=== PATIENT | female | born 1955 | race Caucasian/White ===

== ENCOUNTER 2017-05-14 15:10 | Emergency (ER) | payer MEDICARE, MEDICAID ==
--- NOTE | 2017-05-14 15:32 | ER Document Report ---
ED Dizziness/Weakness - General Chief Complaint: High Blood Pressure Stated Complaint: DIZZINESS Time Seen by Provider: 05/14/17 15:31 Mode of Arrival: Medic Information source: Patient Notes: 61 yo female with hx HTN, fibromyalgia, severe depression (vagal nerve stimulator for depression- years) (tx by [facility]) sent by PSYCH Beth MENDIETAP (routine appt had some dizziness prior to appt- gets it when her BP goes up) at 1200, had 3 elevated readings, was given prescription for new rx and to stop the rx dr jacinto has given her in past, also cut down clonazapam went home after filling them at [facility]. Watched TV felt tightening in the throat (less now), pounding frontal HENRY 4/5, called her PCP and they told her to come per Dr Jacinto. She called EMS did not have a ride here. After she got to the ER her BP was better. Feels OK. While on ambulance, started having some midline stomach pain, IV put in, EKG. At this time she has pain in left elbow (hx arthritis in back and neck) (tender left lateral olecranon area tendon) HENRY now 1.5/5. TRAVEL OUTSIDE OF THE [place] IN LAST 30 DAYS: No - Related Data Allergies/Adverse Reactions: No Known Allergies Allergy (Verified 05/01/15 09:12) Past Medical History - General Information source: Patient - Social History Smoking Status: Current Every Day Smoker Frequency of alcohol use: None Drug Abuse: None Lives with: Family Family History: Reviewed & Not Pertinent - Past Medical History Cardiac Medical History: Reports: Hx Hypercholesterolemia, Hx Hypertension - MEDICATED Pulmonary Medical History: Reports: Hx COPD Endocrine Medical History: Reports: Hx Hyperthyroidism GI Medical History: Reports: Hx Gastroesophageal Reflux Disease Musculoskeltal Medical History: Reports Hx Arthritis Psychiatric Medical History: Reports: Hx Depression Past Surgical History: Reports: Hx Appendectomy, Hx Cholecystectomy, Hx Gynecologic Surgery - oopherectomy, Hx Orthopedic Surgery - back surgery, Hx Tonsillectomy - Immunizations Immunizations up to date: Yes Hx Diphtheria, Pertussis, Tetanus Vaccination: Yes - Tetanus only Review of Systems - Review of Systems Constitutional: See HPI EENT: See HPI Cardiovascular: No symptoms reported Respiratory: No symptoms reported Gastrointestinal: No symptoms reported Genitourinary: No symptoms reported Female Genitourinary: No symptoms reported Musculoskeletal: See HPI Skin: No symptoms reported Hematologic/Lymphatic: No symptoms reported Neurological/Psychological: See HPI Physical Exam - Vital signs Vitals: Temp Pulse BP Pulse Ox 98.4 F 66 177/99 H 100 05/14/17 15:18 05/14/17 15:18 05/14/17 15:18 05/14/17 15:18 Interpretation: Normal - General General appearance: Appears well, Alert In distress: None - HEENT Head: Normocephalic, Atraumatic Eyes: Normal Conjunctiva: Normal Pupils: PERRL Pharynx: Normal Neck: Supple. No: Lymphadenopathy, Thyromegally - Respiratory Respiratory status: No respiratory distress Chest status: Nontender Breath sounds: Normal Chest palpation: Normal - Cardiovascular Rhythm: Regular Heart sounds: Normal auscultation Murmur: No - Abdominal Inspection: Normal Distension: No distension Bowel sounds: Normal Tenderness: Nontender. No: Tender Organomegaly: No organomegaly - Back Back: Normal, Nontender - Extremities General upper extremity: Normal inspection, Nontender, Normal color, Normal ROM , Normal temperature General lower extremity: Normal inspection, Nontender, Normal color, Normal ROM , Normal temperature, Normal weight bearing. No: Ntiza's sign Elbow: Tender - lateral proximal left forearm at radial head over muscle/tendon - Neurological Neuro grossly intact: Yes Cognition: Normal Orientation: AAOx4 [place] Coma Scale Eye Opening: Spontaneous [place] Coma Scale Verbal: Oriented [place] Coma Scale Motor: Obeys Commands [place] Coma Scale Total: 15 Speech: Normal Motor strength normal: LUE, RUE, LLE, RLE Sensory: Normal Notes: gait stable, alternating hand movements and finger to nose touch negative. - Psychological Associated symptoms: Normal affect, Normal mood - Skin Skin Temperature: Warm Skin Moisture: Dry Skin Color: Normal Course - Re-evaluation Re-evalutation: 05/14/17 19:11 Workup is negative, consult Dr. Kulkarni she can be discharged with no change to medication. bp 186/96 05/14/17 19:15 - Vital Signs Vital signs: Temp Pulse Resp BP Pulse Ox 98.4 F 66 177/99 H 100 05/14/17 15:18 05/14/17 15:18 05/14/17 15:18 05/14/17 15:18 - Laboratory Result Diagrams: 05/14/17 16:35 05/14/17 16:35 Laboratory results interpreted by me: 05/14/17 05/14/17 16:35 16:35 Hgb 11.5 L Hct 33.9 L Potassium 3.5 L Carbon Dioxide 32 H Glucose 74 L Discharge - Discharge Clinical Impression: dizziness, Left elbow tendonitis Hypertension Qualifiers: Hypertension type: essential hypertension Qualified Code(s): I10 - Essential ( primary) hypertension Condition: Good Disposition: HOME, SELF-CARE Instructions: Angiotensin Converting Enzyme Inhibitor Medication ([facility]), Dizziness ([facility]), High Blood Pressure ([facility]), Hydrochlorothiazide ([facility]) Additional Instructions: see dr. jacinto for follow up warm compress to your elbow start your new blood pressure medication to er if worse
[2017-05-14 16:58] LABS: ABSOLUTE BASOPHILS # (AUTO) 0.1 10^3/uL (0.0-0.2); ABSOLUTE LYMPHOCYTES (AUTO) 2.4 10^3/uL (0.5-4.7); ABSOLUTE MONOCYTES (AUTO) 0.3 10^3/uL (0.1-1.4); ABSOLUTE NEUT (AUTO) 4.3 10^3/uL (1.7-8.2); BASOPHILS % (AUTO) 0.9 % (0-2); EOSINOPHILS % (AUTO) 0.4 % (0-6); HEMATOCRIT 33.9 % (36.0-47.0); HEMOGLOBIN 11.5 g/dL (12.0-15.5); HGB HCT DIFFERENCE 0.6; LYMPHOCYTES % (AUTO) 33.5 % (13-45); MEAN CORPUSCULAR HEMOGLOBIN 30.2 pg (27.0-33.4); MEAN CORPUSCULAR HGB CONC 33.9 g/dL (32.0-36.0); MEAN CORPUSCULAR VOLUME 89 fl (80-97); MONOCYTES % (AUTO) 4.7 % (3-13); RED BLOOD COUNT 3.81 10^6/uL (3.72-5.28); SEGMENTED NEUTROPHILS % (AUTO) 60.5 % (42-78); WHITE BLOOD COUNT 7.1 10^3/uL (4.0-10.5)
[2017-05-14 17:14] LABS: ALANINE AMINOTRANSFERASE 26 U/L (9-52); ALBUMIN 4.1 g/dL (3.5-5.0); ALKALINE PHOSPHATASE 65 U/L (38-126); ANION GAP 7 (5-19); ASPARTATE AMINO TRANSFERASE 24 U/L (14-36); BILIRUBIN,DIRECT 0.2 mg/dL (0.0-0.4); BILIRUBIN,TOTAL 0.3 mg/dL (0.2-1.3); BLOOD UREA NITROGEN 10 mg/dL (7-20); CALCIUM 9.5 mg/dL (8.4-10.2); CARBON DIOXIDE 32 mmol/L (22-30); CHLORIDE 99 mmol/L (98-107); CREATINE KINASE 47 U/L (30-135); CREATININE RESULT 0.64 mg/dL (0.52-1.25); GLUCOSE 74 mg/dL (75-110); POTASSIUM 3.5 mmol/L (3.6-5.0); SODIUM 137.8 mmol/L (137-145); TOTAL PROTEIN 6.3 g/dL (6.3-8.2)
[2017-05-14 17:26] LABS: CREATINE KINASE MB 0.94 ng/mL (<4.55)
[2017-05-14 17:28] LABS: TROPONIN I < 0.012 ng/mL
--- NOTE | 2017-05-14 17:32 | RADIOLOGY REPORT (SQ) ---
EXAM DESCRIPTION: CT HEAD WITHOUT COMPLETED DATE/TIME: 05/14/2017 5:13 pm REASON FOR STUDY: headache dizzy elevated bp COMPARISON: 07/06/2014 TECHNIQUE: Axial images acquired through the brain without intravenous contrast. Images reviewed wi th bone, brain and subdural windows. Images stored on PACS. All CT scanners at this facility use dose modulation, iterative reconstruction, and/or weight based d osing when appropriate to reduce radiation dose to as low as reasonably achievable (ALARA). [facility]: Dose Right [facility]: CareDose [facility]: Dose Right [facility]: Teradose 4D [facility]: Smart [employer] RADIATION DOSE: CT Rad equipment meets quality standard of care and radiation dose reduction techniq ues were employed. CTDIvol: 64.6 mGy. DLP: 1163 mGy-cm. mGy. LIMITATIONS: None. FINDINGS: VENTRICLES: Normal. CEREBRUM: No masses. No hemorrhage. No midline shift. Areas of low density in the white matter mos t likely due to chronic micro-vascular ischemic change. No evidence for acute infarction. CEREBELLUM: No masses. No hemorrhage. No alteration of density. No evidence for acute infarction. EXTRAAXIAL SPACES: Mild age-related involutional change. No fluid collections. No masses. ORBITS AND GLOBE: No intra- or extraconal masses. Normal contour of globe without masses. CALVARIUM: No fracture. PARANASAL SINUSES: No fluid or mucosal thickening. SOFT TISSUES: No mass or hematoma. OTHER: No other significant finding. IMPRESSION: No acute intracranial findings. EVIDENCE OF ACUTE STROKE: NO. TECHNICAL DOCUMENTATION: JOB ID: [id number] [place]-72 Quality ID # [id number]: Final reports with documentation of one or more dose reduction techniques (e.g., Au tomated exposure control, adjustment of the mA and/or kV according to patient size, use of iterative reconstruction technique) 2010 [employer]- All Rights Reserved
--- NOTE | 2017-05-14 17:33 | RADIOLOGY REPORT (SQ) ---
EXAM DESCRIPTION: CHEST PA/LAT COMPLETED DATE/TIME: 05/14/2017 5:13 pm REASON FOR STUDY: sob COMPARISON: 02/25/2014 EXAM PARAMETERS: NUMBER OF VIEWS: two views TECHNIQUE: Digital Frontal and Lateral radiographic views of the chest acquired. RADIATION DOSE: NA LIMITATIONS: none FINDINGS: LUNGS AND PLEURA: No acute opacities, masses or pneumothorax. No pleural effusion. MEDIASTINUM AND HILAR STRUCTURES: Stable. HEART AND VASCULAR STRUCTURES: Heart normal size. No evidence for failure. BONES: No acute findings. HARDWARE: Nerve stimulator. OTHER: No other significant finding. IMPRESSION: No acute findings. TECHNICAL DOCUMENTATION: JOB ID: [id number] [place]-72 2010 [employer]- All Rights Reserved
--- NOTE | 2017-05-14 18:48 | EKG REPORT ---
SEVERITY:- ABNORMAL ECG - SINUS RHYTHM LEFT VENTRICULAR HYPERTROPHY : Confirmed by: Willie Carranza MD 14-May-2017 18:48:18
[2017-05-14 19:37] VITALS: BP 187/90
== END 2017-05-14 19:57 | disposition home or self-care (01) ==
LOC: ER 15:10
DX: I10 Essential (primary) hypertension (principal); R42 Dizziness and giddiness; M77.9 Enthesopathy, unspecified; M79.7 Fibromyalgia; F32.9 Major depressive disorder, single episode, unspecified; F17.200 Nicotine dependence, unspecified, uncomplicated; M25.522 Pain in left elbow
CPT/HCPCS: 36415; 70450; 71020; 80053; 82550; 82553; 84484; 85025; 93005; 93010; 99285

== ENCOUNTER 2020-01-04 13:59 | Inpatient (IN) | payer MEDICAID, MEDICARE ==
--- NOTE | 2020-01-04 15:03 | ER Document Report ---
ED Medical Screen (RME) - General Chief Complaint: Shortness Of Breath Stated Complaint: RIGHT SIDE BODY NUMBNESS Time Seen by Provider: 01/04/20 14:52 Primary Care Provider: INES VILLEDA DPM [Primary Care Provider] - Follow up as needed Mode of Arrival: Carried Information source: Patient Notes: 64-year-old female presented to ED for complaint of right-sided numbness to the arm and leg blood pressure 220/120 trouble breathing since yesterday. She states she is supposed to be on blood pressure medicine but has not taken any for about a year because she cannot afford it. She is alert and oriented she does have a headache does have the numbness I have ordered CT blood work EKG chest x-ray. She states she also states she had pain on the inside of the left side of her throat but it is not a sore throat. I have greeted and performed a rapid initial assessment of this patient. A comprehensive ED assessment and evaluation of the patient, analysis of test results and completion of medical decision making process will be conducted by an additional ED providers. TRAVEL OUTSIDE OF THE [place] IN LAST 30 DAYS: No - Related Data Allergies/Adverse Reactions: No Known Allergies Allergy (Verified 01/04/20 15:01) Past Medical History - Social History Chew tobacco use (# tins/day): No Frequency of alcohol use: None - Past Medical History Cardiac Medical History: Reports: Hx Congestive Heart Failure, Hx Hypercholesterolemia, Hx Hypertension - MEDICATED Denies: Hx Coronary Artery Disease, Hx Heart Attack Pulmonary Medical History: Reports: Hx COPD Denies: Hx Asthma, Hx Bronchitis, Hx Pneumonia, Hx Tuberculosis Neurological Medical History: Denies: Hx Cerebrovascular Accident, Hx Seizures Endocrine Medical History: Reports: Hx Hyperthyroidism Renal/ Medical History: Denies: Hx Peritoneal Dialysis GI Medical History: Reports: Hx Gastroesophageal Reflux Disease. Denies: Hx Hepatitis, Hx Hiatal Hernia, Hx Ulcer Musculoskeltal Medical History: Reports Hx Arthritis Psychiatric Medical History: Reports: Hx Depression Infectious Medical History: Denies: Hx Hepatitis Past Surgical History: Reports: Hx Appendectomy, Hx Cholecystectomy, Hx Gynecologic Surgery - oopherectomy, Hx Orthopedic Surgery - back surgery, Hx Tonsillectomy. Denies: Hx Hysterectomy, Hx Mastectomy, Hx Open Heart Surgery, Hx Pacemaker - Immunizations Immunizations up to date: Yes Hx Diphtheria, Pertussis, Tetanus Vaccination: Yes - Tetanus only Physical Exam - Vital signs Vitals: Temp Pulse Resp BP Pulse Ox 98.6 F 76 18 203/105 H 97 01/04/20 14:07 01/04/20 14:07 01/04/20 14:07 01/04/20 14:07 01/04/20 14:07 Course - Vital Signs Vital signs: Temp Pulse Resp BP Pulse Ox 98.6 F 76 18 203/105 H 97 01/04/20 14:07 01/04/20 14:07 01/04/20 14:07 01/04/20 14:07 01/04/20 14:07 Doctor's Discharge - Discharge Referrals: INES VILLEDA DPM [Primary Care Provider] - Follow up as needed
[2020-01-04] MEDS ORDERED: HYDRALAZINE HCL INJ/PF 20 MG/1 ML SDV IV ONE ×2 (15:26→17:58)
--- NOTE | 2020-01-04 15:42 | ER Document Report ---
ED General - General Chief Complaint: Shortness Of Breath Stated Complaint: RIGHT SIDE BODY NUMBNESS Time Seen by Provider: 01/04/20 14:52 Primary Care Provider: INES VILLEDA DPM [ACTIVE STAFF] - Follow up as needed Mode of Arrival: Carried Notes: HPI: 64-year-old female with past medical history as recorded including high blood pressure is been noncompliant with her blood pressure medications over a year secondary to financial constraints who presents stating that she started yesterday to have some numbness to her right arm and leg. She states it is been constant. She denies any weakness. States a very mild frontal headache without double or blurry vision. Patient states she has had some left anterior neck pain. She denies any trauma or swelling. She is very nonspecific about chest discomfort and just states "may be some pressure sometimes". No aggravating relieving factors. Some mild shortness of breath with ambulation. No radiation to the pain. No nausea, vomiting, fevers, diarrhea, calf pain or leg swelling. No recent trips or travel. ROS: See HPI All other review of systems reviewed and otherwise negative Reviewed vital signs and nursing note as charted by RN. PHYSICAL EXAM: CONSTITUTIONAL: Alert and oriented and responds appropriately to questions. Well-appearing; well-nourished HEAD: Normocephalic; atraumatic EYES: PERRL; full extraocular range of motion ENT: Normal nose; no rhinorrhea; moist mucous membranes; pharynx without lesions noted NECK: Supple without meningismus; non-tender to palpation of the posterior midline spine. Patient has some mild anterior neck tenderness with no swelling, erythema, or bruits on auscultation; no cervical lymphadenopathy, no masses CARD: Regular rate and rhythm; no murmurs; symmetric distal pulses RESP: Normal chest excursion without splinting or tachypnea; breath sounds clear and equal bilaterally; no wheezes, no rhonchi, no rales ABD/GI: Normal bowel sounds; non-distended; soft, non-tender; no palpable organomegaly or masses BACK: The back appears normal and is non-tender to palpation EXT: Normal ROM in all joints; non-tender to palpation; no edema SKIN: No acute lesions noted NEURO: CN 2-12 intact; 5/5 bilateral upper and lower extremity strength; patient has some mild decrease sensation to light touch to the right arm and right leg; no nystagmus with normal cerebellar exam PSYCH: The patient's mood and manner are appropriate. Grooming and personal hygiene are appropriate. TRAVEL OUTSIDE OF THE [place] IN LAST 30 DAYS: No - Related Data Allergies/Adverse Reactions: No Known Allergies Allergy (Verified 01/04/20 15:01) Past Medical History - General Information source: Patient - Social History Smoking Status: Current Every Day Smoker Chew tobacco use (# tins/day): No Frequency of alcohol use: None Family History: Reviewed & Not Pertinent - Past Medical History Cardiac Medical History: Reports: Hx Congestive Heart Failure, Hx Hypercholesterolemia, Hx Hypertension - MEDICATED Denies: Hx Coronary Artery Disease, Hx Heart Attack Pulmonary Medical History: Reports: Hx COPD Denies: Hx Asthma, Hx Bronchitis, Hx Pneumonia, Hx Tuberculosis Neurological Medical History: Denies: Hx Cerebrovascular Accident, Hx Seizures Endocrine Medical History: Reports: Hx Hyperthyroidism Renal/ Medical History: Denies: Hx Peritoneal Dialysis GI Medical History: Reports: Hx Gastroesophageal Reflux Disease. Denies: Hx Hepatitis, Hx Hiatal Hernia, Hx Ulcer Musculoskeletal Medical History: Reports Hx Arthritis Psychiatric Medical History: Reports: Hx Depression Infectious Medical History: Denies: Hx Hepatitis Past Surgical History: Reports: Hx Appendectomy, Hx Cholecystectomy, Hx Gynecologic Surgery - oopherectomy, Hx Orthopedic Surgery - back surgery, Hx Tonsillectomy. Denies: Hx Hysterectomy, Hx Mastectomy, Hx Open Heart Surgery, Hx Pacemaker - Immunizations Immunizations up to date: Yes Hx Diphtheria, Pertussis, Tetanus Vaccination: Yes - Tetanus only Physical Exam - Vital signs Vitals: Temp Pulse Resp BP Pulse Ox 98.6 F 76 18 203/105 H 97 01/04/20 14:07 01/04/20 14:07 01/04/20 14:07 01/04/20 14:07 01/04/20 14:07 Course - Re-evaluation Re-evalutation: Given the history and physical examination with the symptoms starting yesterday, with an NIH score of 1, BA and score negative, I do not believe that the patient is a TPA or extraction candidate at this time. Blood pressure was greater than 220/110 with a mild headache that is now resolved as well as some right arm and leg numbness. I will provide IV blood pressure control medications and obtain a cardiac panel and a CT scan of the head. Concern for the possibility of hypertensive emergency, stroke, intracranial lesion, or other acute pathology. I do believe currently with no chest discomfort, very vague symptoms, no radiation to the back, with excellent pulses to all 4 extremities, not tachycardic or hypoxic, the PE and dissection are unlikely. 01/04/20 16:22 No change in exam. EKG shows a heart of 62, normal sinus rhythm, left axis deviation. LVH is present. 01/04/20 17:55 Imaging as recorded. Old appearing strokes noted. Labs as recorded. We have provided 1 dose of IV medications for blood pressure. Patient's headache has improved. Numbness has improved. Blood pressure is relatively unchanged. We will provide another dose of hydralazine and admit the patient to the hospitalist service for further evaluation and treatment. - Vital Signs Vital signs: Temp Pulse Resp BP Pulse Ox 98.6 F 76 15 222/106 H 98 01/04/20 14:07 01/04/20 14:07 01/04/20 17:07 01/04/20 16:01 01/04/20 16:01 - Laboratory Result Diagrams: 01/04/20 15:40 01/04/20 15:40 Laboratory results interpreted by me: 01/04/20 01/04/20 15:40 15:40 Sodium 135.3 L NT-Pro-B Natriuret Pep 1240 H Critical Care Note - Critical Care Note Total time excluding time spent on procedures (mins): 40 Discharge - Discharge Clinical Impression: Hypertensive emergency, Elevated brain natriuretic peptide (BNP) level Condition: Fair Disposition: ADMITTED INPATIENT Admitting Provider: Chantal (Hospitalist) Unit Admitted: IMCU Referrals: INES VILLEDA DPM [ACTIVE STAFF] - Follow up as needed
[2020-01-04 15:57] LABS: ABSOLUTE EOSINOPHILS # (AUTO) 0.1 10^3/uL (0.0-0.6); ABSOLUTE LYMPHOCYTES (AUTO) 1.6 10^3/uL (0.5-4.7); ABSOLUTE MONOCYTES (AUTO) 0.4 10^3/uL (0.1-1.4); ABSOLUTE NEUT (AUTO) 2.7 10^3/uL (1.7-8.2); BASOPHILS % (AUTO) 0.5 % (0-2); EOSINOPHILS % (AUTO) 1.7 % (0-6); HEMATOCRIT 39.4 % (36.0-47.0); HEMOGLOBIN 13.3 g/dL (12.0-15.5); LYMPHOCYTES % (AUTO) 33.4 % (13-45); MEAN CORPUSCULAR HEMOGLOBIN 29.9 pg (27.0-33.4); MEAN CORPUSCULAR HGB CONC 33.6 g/dL (32.0-36.0); MEAN CORPUSCULAR VOLUME 89 fl (80-97); PLATELET COUNT 239 10^3/uL (150-450); RED BLOOD COUNT 4.44 10^6/uL (3.72-5.28); RED CELL DISTRIBUTION WIDTH 13.7 % (11.5-14.0); SEGMENTED NEUTROPHILS % (AUTO) 56.4 % (42-78); TOTAL CELLS COUNTED % (AUTO) 100 %; WHITE BLOOD COUNT 4.8 10^3/uL (4.0-10.5)
[2020-01-04 16:12] LABS: ALBUMIN 4.3 g/dL (3.5-5.0); ALKALINE PHOSPHATASE 75 U/L (38-126); ANION GAP 5 (5-19); ASPARTATE AMINO TRANSFERASE 22 U/L (14-36); BILIRUBIN,TOTAL 0.4 mg/dL (0.2-1.3); BLOOD UREA NITROGEN 10 mg/dL (7-20); CALCIUM 9.3 mg/dL (8.4-10.2); CARBON DIOXIDE 30 mmol/L (22-30); CHLORIDE 100 mmol/L (98-107); GLUCOSE 81 mg/dL (75-110); POTASSIUM 3.9 mmol/L (3.6-5.0); TOTAL PROTEIN 6.9 g/dL (6.3-8.2)
[2020-01-04 16:27] LABS: TROPONIN I 0.016 ng/mL
--- NOTE | 2020-01-04 16:30 | RADIOLOGY REPORT (SQ) ---
EXAM DESCRIPTION: CHEST SINGLE VIEW IMAGES COMPLETED DATE/TIME: 01/04/2020 4:21 pm REASON FOR STUDY: Short of breath COMPARISON: 05/14/2017 EXAM PARAMETERS: NUMBER OF VIEWS: One view. TECHNIQUE: Single frontal radiographic view of the chest acquired. RADIATION DOSE: NA LIMITATIONS: None. FINDINGS: LUNGS AND PLEURA: No opacities, masses or pneumothorax. No pleural effusion. MEDIASTINUM AND HILAR STRUCTURES: No masses. Contour normal. HEART AND VASCULAR STRUCTURES: Stable heart size. Normal vasculature. BONES: No acute findings. HARDWARE: Vagal stimulator. OTHER: No other significant finding. IMPRESSION: NO ACUTE RADIOGRAPHIC FINDING IN THE CHEST. TECHNICAL DOCUMENTATION: JOB ID: [id number] 2010 [employer]- All Rights Reserved Reading location - IP/workstation name: [email or web address]
--- NOTE | 2020-01-04 16:52 | EKG REPORT ---
SEVERITY:- ABNORMAL ECG - SINUS RHYTHM LEFT AXIS DEVIATION LVH WITH SECONDARY REPOLARIZATION ABNORMALITY : Confirmed by: Denzel Bowman MD 04-Jan-2020 16:52:12
--- NOTE | 2020-01-04 17:38 | RADIOLOGY REPORT (SQ) ---
EXAM DESCRIPTION: CTA NECK; CT HEAD WITHOUT; CTA HEAD IMAGES COMPLETED DATE/TIME: 01/04/2020 5:10 pm REASON FOR STUDY: 7; left neck pain. Right sided weakness; Right arm and leg numb since yesterday; RIGHT SIDED WEAKNESS COMPARISON: CT brain 12/18/2011, 07/06/2014, 05/14/2017 TECHNIQUE: Axial dynamic scanning technique with dynamic contrast enhancement through the extra-fire fighter crash fire and rescue nial carotid and vertebral arteries. Multiplanar reconstruction. 3-D MIPS and Volume-rendered imag es acquired at the workstation and saved to PACS. Images are reviewed in soft tissue, bone, lung w indows. Brain was imaged without contrast. Postcontrast brain imaging was performed with sagittal and cruz l reconstructions. Axial dynamic scanning technique with dynamic contrast enhancement through the i ntra-cranial carotid and vertebral arteries. Multiplanar reconstruction. 3-D MIPS and Volume-rende red images acquired at the workstation and saved to PACS. Images are reviewed in soft tissue, bone All CT scanners at this facility use dose modulation, iterative reconstruction, and/or weight based d osing when appropriate to reduce radiation dose to as low as reasonably achievable (ALARA). [facility]: Dose Right [facility]: CareDose [facility]: Dose Right [facility]: Teradose 4D [facility]: [employer] CONTRAST TYPE AND DOSE: contrast/concentration: Isovue 350.00 mmol/ml; Total Contrast Delivered: 70. 0 ml; Total Saline Delivered: 67.0 ml 75 mL of IV Omnipaque 350- low osmolar. RENAL FUNCTION: GFR > 60. LIMITATIONS: None. FINDINGS: EXTRACRANIAL CAROTID/VERTEBRAL CTA AORTIC ARCH: Normal three-vessel origin. Bilateral subclavian arteries are patent. No dissection. RIGHT CAROTIDS: Patent common, internal and external carotid arteries without suggestion of significa nt stenosis or irregular plaque. No dissection. RIGHT VERTEBRAL: Patent. No dissection. LEFT CAROTIDS: Patent common, internal and external carotid arteries without suggestion of significan t stenosis or irregular plaque. No dissection. LEFT VERTEBRAL: Patent. No dissection. OTHER: Left-sided pacemaker. Lung apices are clear. No neck masses or adenopathy. [place] CTA ANTERIOR CIRCULATION: No stenosis, vascular malformation, or aneurysm. POSTERIOR CIRCULATION: No stenosis, vascular malformation, or aneurysm BRAIN AND VENTRICLES: Pre contrasted CT imaging demonstrates no evidence of acute intracranial hemor rhage, mass effect, or midline shift. 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 Post contrasted brain imaging demonstrates no abnormal masses or enhancement. OTHER: Post bilateral cataract surgery OTHER: 3-D reconstructions confirm findings. IMPRESSION: NORMAL CTA OF THE EXTRA-CRANIAL CAROTID AND VERTEBRAL ARTERIES. MULTIPLE CHRONIC APPEARING DEEP WHITE MATTER, BASAL GANGLIA, AND THALAMIC INFARCTS. NO CT EVIDENCE OF ACUTE LARGE TERRITORY ISCHEMIC CHANGE, ACUTE INTRACRANIAL HEMORRHAGE, MASS EFFECT, OR MIDLINE SHIFT. COMMENT: Quality ID #[id number]: Measurements of distal internal carotid diameter were used as the denomina tor for stenosis measurement. TECHNICAL DOCUMENTATION: JOB ID: [id number] Quality ID # 436: Final reports with documentation of one or more dose reduction techniques (e.g., Au tomated exposure control, adjustment of the mA and/or kV according to patient size, use of iterative reconstruction technique) 2010 [employer]- All Rights Reserved Reading location - IP/workstation name: [email or web address]
--- NOTE | 2020-01-04 17:38 | RADIOLOGY REPORT (SQ) ---
EXAM DESCRIPTION: CTA NECK; CT HEAD WITHOUT; CTA HEAD IMAGES COMPLETED DATE/TIME: 01/04/2020 5:10 pm REASON FOR STUDY: 7; left neck pain. Right sided weakness; Right arm and leg numb since yesterday; RIGHT SIDED WEAKNESS COMPARISON: CT brain 12/18/2011, 07/06/2014, 05/14/2017 TECHNIQUE: Axial dynamic scanning technique with dynamic contrast enhancement through the extra-card scraper nial carotid and vertebral arteries. Multiplanar reconstruction. 3-D MIPS and Volume-rendered imag es acquired at the workstation and saved to PACS. Images are reviewed in soft tissue, bone, lung w indows. Brain was imaged without contrast. Postcontrast brain imaging was performed with sagittal and cruz l reconstructions. Axial dynamic scanning technique with dynamic contrast enhancement through the i ntra-cranial carotid and vertebral arteries. Multiplanar reconstruction. 3-D MIPS and Volume-rende red images acquired at the workstation and saved to PACS. Images are reviewed in soft tissue, bone All CT scanners at this facility use dose modulation, iterative reconstruction, and/or weight based d osing when appropriate to reduce radiation dose to as low as reasonably achievable (ALARA). [facility]: Dose Right [facility]: CareDose [facility]: Dose Right [facility]: Teradose 4D [facility]: Naviswiss CONTRAST TYPE AND DOSE: contrast/concentration: Isovue 350.00 mmol/ml; Total Contrast Delivered: 70. 0 ml; Total Saline Delivered: 67.0 ml 75 mL of IV Omnipaque 350- low osmolar. RENAL FUNCTION: GFR > 60. LIMITATIONS: None. FINDINGS: EXTRACRANIAL CAROTID/VERTEBRAL CTA AORTIC ARCH: Normal three-vessel origin. Bilateral subclavian arteries are patent. No dissection. RIGHT CAROTIDS: Patent common, internal and external carotid arteries without suggestion of significa nt stenosis or irregular plaque. No dissection. RIGHT VERTEBRAL: Patent. No dissection. LEFT CAROTIDS: Patent common, internal and external carotid arteries without suggestion of significan t stenosis or irregular plaque. No dissection. LEFT VERTEBRAL: Patent. No dissection. OTHER: Left-sided pacemaker. Lung apices are clear. No neck masses or adenopathy. [place] CTA ANTERIOR CIRCULATION: No stenosis, vascular malformation, or aneurysm. POSTERIOR CIRCULATION: No stenosis, vascular malformation, or aneurysm BRAIN AND VENTRICLES: Pre contrasted CT imaging demonstrates no evidence of acute intracranial hemor rhage, mass effect, or midline shift. 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 Post contrasted brain imaging demonstrates no abnormal masses or enhancement. OTHER: Post bilateral cataract surgery OTHER: 3-D reconstructions confirm findings. IMPRESSION: NORMAL CTA OF THE EXTRA-CRANIAL CAROTID AND VERTEBRAL ARTERIES. MULTIPLE CHRONIC APPEARING DEEP WHITE MATTER, BASAL GANGLIA, AND THALAMIC INFARCTS. NO CT EVIDENCE OF ACUTE LARGE TERRITORY ISCHEMIC CHANGE, ACUTE INTRACRANIAL HEMORRHAGE, MASS EFFECT, OR MIDLINE SHIFT. COMMENT: Quality ID #[id number]: Measurements of distal internal carotid diameter were used as the denomina tor for stenosis measurement. TECHNICAL DOCUMENTATION: JOB ID: [id number] Quality ID # 436: Final reports with documentation of one or more dose reduction techniques (e.g., Au tomated exposure control, adjustment of the mA and/or kV according to patient size, use of iterative reconstruction technique) 2010 [employer]- All Rights Reserved Reading location - IP/workstation name: [id number]
--- NOTE | 2020-01-04 17:38 | RADIOLOGY REPORT (SQ) ---
EXAM DESCRIPTION: CTA NECK; CT HEAD WITHOUT; CTA HEAD IMAGES COMPLETED DATE/TIME: 01/04/2020 5:10 pm REASON FOR STUDY: 7; left neck pain. Right sided weakness; Right arm and leg numb since yesterday; RIGHT SIDED WEAKNESS COMPARISON: CT brain 12/18/2011, 07/06/2014, 05/14/2017 TECHNIQUE: Axial dynamic scanning technique with dynamic contrast enhancement through the extra-crap game box person nial carotid and vertebral arteries. Multiplanar reconstruction. 3-D MIPS and Volume-rendered imag es acquired at the workstation and saved to PACS. Images are reviewed in soft tissue, bone, lung w indows. Brain was imaged without contrast. Postcontrast brain imaging was performed with sagittal and cruz l reconstructions. Axial dynamic scanning technique with dynamic contrast enhancement through the i ntra-cranial carotid and vertebral arteries. Multiplanar reconstruction. 3-D MIPS and Volume-rende red images acquired at the workstation and saved to PACS. Images are reviewed in soft tissue, bone All CT scanners at this facility use dose modulation, iterative reconstruction, and/or weight based d osing when appropriate to reduce radiation dose to as low as reasonably achievable (ALARA). [facility]: Dose Right [facility]: CareDose [facility]: Dose Right [facility]: Teradose 4D [facility]: Beeline CONTRAST TYPE AND DOSE: contrast/concentration: Isovue 350.00 mmol/ml; Total Contrast Delivered: 70. 0 ml; Total Saline Delivered: 67.0 ml 75 mL of IV Omnipaque 350- low osmolar. RENAL FUNCTION: GFR > 60. LIMITATIONS: None. FINDINGS: EXTRACRANIAL CAROTID/VERTEBRAL CTA AORTIC ARCH: Normal three-vessel origin. Bilateral subclavian arteries are patent. No dissection. RIGHT CAROTIDS: Patent common, internal and external carotid arteries without suggestion of significa nt stenosis or irregular plaque. No dissection. RIGHT VERTEBRAL: Patent. No dissection. LEFT CAROTIDS: Patent common, internal and external carotid arteries without suggestion of significan t stenosis or irregular plaque. No dissection. LEFT VERTEBRAL: Patent. No dissection. OTHER: Left-sided pacemaker. Lung apices are clear. No neck masses or adenopathy. [place] CTA ANTERIOR CIRCULATION: No stenosis, vascular malformation, or aneurysm. POSTERIOR CIRCULATION: No stenosis, vascular malformation, or aneurysm BRAIN AND VENTRICLES: Pre contrasted CT imaging demonstrates no evidence of acute intracranial hemor rhage, mass effect, or midline shift. 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 Post contrasted brain imaging demonstrates no abnormal masses or enhancement. OTHER: Post bilateral cataract surgery OTHER: 3-D reconstructions confirm findings. IMPRESSION: NORMAL CTA OF THE EXTRA-CRANIAL CAROTID AND VERTEBRAL ARTERIES. MULTIPLE CHRONIC APPEARING DEEP WHITE MATTER, BASAL GANGLIA, AND THALAMIC INFARCTS. NO CT EVIDENCE OF ACUTE LARGE TERRITORY ISCHEMIC CHANGE, ACUTE INTRACRANIAL HEMORRHAGE, MASS EFFECT, OR MIDLINE SHIFT. COMMENT: Quality ID #[id number]: Measurements of distal internal carotid diameter were used as the denomina tor for stenosis measurement. TECHNICAL DOCUMENTATION: JOB ID: [id number] Quality ID # 436: Final reports with documentation of one or more dose reduction techniques (e.g., Au tomated exposure control, adjustment of the mA and/or kV according to patient size, use of iterative reconstruction technique) 2010 [email or web address]- All Rights Reserved Reading location - IP/workstation name: [id number]
[2020-01-04] MEDS ORDERED: NICOTINE 14 MG/24 HR PATCH.TD24 TD PRN (18:21)
--- NOTE | 2020-01-04 18:27 | PDOC H&P ---
History of Present Illness Admission Date/PCP: 01/04/20 18:12 Patient complains of: c/o of arm and leg weakness for 2 days History of Present Illness: HERMINIA CINTRON is a 64 year old female With history of hypertension not taking medications for more than 6 months, COPD secondary to chronic smoking came to the emergency room with complaints of arm and leg weakness for 2 2 days. Complaining of occasional chest pressure-like symptoms. No other complaints. Extensive work-up was done in the ER positive for a blood pressure of systolic 220/diastolic of 110. Patient was given 10 IV hydralazine with no improvement. Medical consult was called for admission for hypertensive emergency. Past Medical History Cardiac Medical History: Reports: Congestive Heart Failure, Hyperlipidema, Hypertension - MEDICATED Denies: Coronary Artery Disease, Myocardial Infarction Pulmonary Medical History: Reports: Chronic Obstructive Pulmonary Disease (COPD) Denies: Asthma, Bronchitis, Pneumonia, Tuberculosis Neurological Medical History: Denies: Seizures Endocrine Medical History: Reports: Hyperthyroidism GI Medical History: Reports: Gastroesophageal Reflux Disease Denies: Hepatitis, Hiatal Hernia Musculoskeltal Medical History: Reports: Arthritis Psychiatric Medical History: Reports: Depression Hematology: Reports: Anemia - NO CURRENT MED Denies: Sickle Cell Disease Past Surgical History Past Surgical History: Reports: Appendectomy, Cholecystectomy, Orthopedic Surgery - back surgery, Tonsillectomy Denies: Amputation, Hysterectomy, Mastectomy, Pacemaker Social History Smoking Status: Current Every Day Smoker Electronic Cigarette use?: No Hx Recreational Drug Use: No Hx Prescription Drug Abuse: No - Advance Directive Resuscitation Status: Do Not Resuscitate Family History Family History: Reviewed & Not Pertinent Parental Family History Reviewed: Yes - Family history of hypertension Children Family History Reviewed: Yes Sibling(s) Family History Reviewed.: Yes Medication/Allergy Home Medications: Albuterol Sulfate [Proair HFA 200 puff/8.5 gm MDI] 2 puff IH Q4H 12/18/11 Aripiprazole [Abilify 20 mg Tablet] 15 mg PO DAILY 12/18/11 Clonazepam [Klonopin 1 Mg Tablet] 1 mg PO QHS 12/18/11 Doxepin HCl 200 mg PO QHS 12/18/11 Esomeprazole Mag Trihydrate [Nexium] 40 mg PO DAILY 12/18/11 Levothyroxine Sodium [Synthroid] 175 mcg PO DAILY 12/18/11 Spironolactone [Aldactone 25 Mg Tablet] 50 mg PO DAILY 12/18/11 Tramadol HCl [Ultram 50 mg Tablet] 50 mg PO Q6HP PRN #5 tablet 01/10/14 Atorvastatin Calcium 10 mg PO DAILY 03/27/15 Clonazepam [Klonopin 0.5 mg Tablet Rapid Dissolve] 0.5 mg PO BID 03/27/15 Diphenhydramine HCl [Benadryl 50 mg Capsule] 50 mg PO BID 03/27/15 Gabapentin [Neurontin 400 mg Capsule] 800 mg PO .BID 03/27/15 Linaclotide [Linzess] 290 mcg PO DAILY 03/27/15 Loratadine [Claritin 10 mg Tablet] 10 mg PO DAILY 03/27/15 Multivit with Calcium,Iron,Min [Multiple Vitamins For Women] 1 each PO DAILY 03/27/15 Paroxetine HCl [Paxil] 40 mg PO DAILY 03/27/15 Pot Chloride/Pot Bicarb/Cit AC [Potassium Cl 25 Meq Tab Eff] 10 meq PO DAILY 03/27/15 Propranolol HCl 50 mg PO DAILY 03/27/15 Tiotropium [place] [Spiriva Handihaler 18 mcg/dose (30 Dose)] 1 cap IH DAILY 03/27/15 Mometasone/Formoterol [Dulera 100 Mcg/5 Mcg Inhaler] 13 gm IH ASDIR PRN 04/24/15 Oxycodone HCl 10 mg PO TID 04/24/15 Allergies/Adverse Reactions: No Known Allergies Allergy (Verified 01/04/20 15:01) Review of Systems Constitutional: PRESENT: weakness. ABSENT: fever(s) Ears: ABSENT: hearing changes Nose, Mouth, and Throat: ABSENT: sore throat Cardiovascular: PRESENT: chest pain. ABSENT: orthropnea, palpitations Respiratory: ABSENT: dyspnea, hemoptysis Gastrointestinal: ABSENT: diarrhea Genitourinary: ABSENT: dysuria, hematuria Musculoskeletal: ABSENT: deformity Integumentary: ABSENT: lesions Neurological: ABSENT: abnormal speech, focal weakness, frequent falls, numbness, paresthesias Endocrine: ABSENT: cold intolerance, heat intolerance, polydipsia, polyuria Hematologic/Lymphatic: ABSENT: easy bleeding, easy bruising Physical Exam Vital Signs: Temp Pulse Resp BP Pulse Ox 98.6 F 76 15 222/106 H 98 01/04/20 14:07 01/04/20 14:07 01/04/20 17:07 01/04/20 16:01 01/04/20 16:01 Intake & Output 01/03/20 01/04/20 01/05/20 06:59 06:59 06:59 Weight 71 kg General appearance: PRESENT: no acute distress Head exam: PRESENT: atraumatic Eye exam: PRESENT: PERRLA Mouth exam: PRESENT: moist, tongue midline Teeth exam: PRESENT: poor dentation Neck exam: ABSENT: carotid bruit, JVD, lymphadenopathy, thyromegaly Respiratory exam: PRESENT: decreased breath sounds Cardiovascular exam: PRESENT: RRR. ABSENT: diastolic murmur, rubs, systolic murmur GI/Abdominal exam: PRESENT: normal bowel sounds, soft. ABSENT: distended, guarding, mass, organolmegaly, rebound, tenderness Rectal exam: PRESENT: deferred Extremities exam: PRESENT: full ROM. ABSENT: calf tenderness, clubbing, pedal edema Neurological exam: PRESENT: alert, awake, oriented to person, oriented to place, oriented to time, oriented to situation, CN II-XII grossly intact. ABSENT: motor sensory deficit Psychiatric exam: PRESENT: appropriate affect, normal mood. ABSENT: homicidal ideation, suicidal ideation Results Laboratory Results: 01/04/20 15:40 01/04/20 15:40 01/04/20 01/04/20 15:40 15:40 WBC 4.8 RBC 4.44 Hgb 13.3 Hct 39.4 MCV 89 MCH 29.9 MCHC 33.6 RDW 13.7 Plt Count 239 Seg Neutrophils % 56.4 Sodium 135.3 L Potassium 3.9 Chloride 100 Carbon Dioxide 30 Anion Gap 5 BUN 10 Creatinine 0.82 Est GFR ( Amer) > 60 Glucose 81 Calcium 9.3 Total Bilirubin 0.4 AST 22 Alkaline Phosphatase 75 Total Protein 6.9 Albumin 4.3 01/04/20 15:40 Troponin I 0.016 NT-Pro-B Natriuret Pep 1240 H Impressions: Head CTA 01/04/20 00:00 IMPRESSION: NORMAL CTA OF THE EXTRA-CRANIAL CAROTID AND VERTEBRAL ARTERIES. MULTIPLE CHRONIC APPEARING DEEP WHITE MATTER, BASAL GANGLIA, AND THALAMIC INFARCTS. NO CT EVIDENCE OF ACUTE LARGE TERRITORY ISCHEMIC CHANGE, ACUTE INTRACRANIAL HEMORRHAGE, MASS EFFECT, OR MIDLINE SHIFT. Chest X-Ray 01/04/20 14:58 IMPRESSION: NO ACUTE RADIOGRAPHIC FINDING IN THE CHEST. Head CT 01/04/20 14:59 IMPRESSION: NORMAL CTA OF THE EXTRA-CRANIAL CAROTID AND VERTEBRAL ARTERIES. MULTIPLE CHRONIC APPEARING DEEP WHITE MATTER, BASAL GANGLIA, AND THALAMIC INFARCTS. NO CT EVIDENCE OF ACUTE LARGE TERRITORY ISCHEMIC CHANGE, ACUTE INTRACRANIAL HEMORRHAGE, MASS EFFECT, OR MIDLINE SHIFT. Neck CTA 01/04/20 15:24 IMPRESSION: NORMAL CTA OF THE EXTRA-CRANIAL CAROTID AND VERTEBRAL ARTERIES. MULTIPLE CHRONIC APPEARING DEEP WHITE MATTER, BASAL GANGLIA, AND THALAMIC INFARCTS. NO CT EVIDENCE OF ACUTE LARGE TERRITORY ISCHEMIC CHANGE, ACUTE INTRACRANIAL HEMORRHAGE, MASS EFFECT, OR MIDLINE SHIFT. Assessment and Plan - Diagnosis (1) Hypertensive emergency Is this a current diagnosis for this admission?: Yes Plan: 01/04/2020-patient is going to be admitted to [facility] for hypertensive emergency as inpatient. Started on IV hydralazine 10 mg IV every 3-4 hours as needed for systolic blood pressure more than 170. GI prophylaxis DVT prophylaxis initiated. Echocardiogram will be requested. To give 1 dose of IV Lasix at this time. She was placed on a cardiac diet. (2) Tobacco abuse Is this a current diagnosis for this admission?: Yes Plan: 01/04/2020 patient is a daily day smoker, smoking counseling is provided for more than 20 minutes and a nicotine patch was placed. - Time Anticipated Discharge Disposition: Home, Self Care Anticipated Discharge Timeframe: within 48 hours
[2020-01-04] MEDS ORDERED: LORAZEPAM INJ 2 MG/1 ML VIAL IV PRN (18:30)
[2020-01-04] MEDS: NITROGLYCERIN/D5W 50 MG/250 ML RTUINJ IV PRN (20:27)
[2020-01-04] MEDS: HEPARIN SOD (PORCINE) 5,000 UNIT/ML 1 ML VIAL SUBCUT SCH (22:44)
[2020-01-04] MEDS: HYDRALAZINE HCL INJ/PF 20 MG/1 ML SDV IV PRN (22:47)
[2020-01-05] MEDS: ACETAMINOPHEN 325 MG TABLET PO PRN ×3 (00:42→18:50)
[2020-01-05 03:37] LABS: APPEARANCE,URINE SLIGHTLY-CLOUDY; BILIRUBIN,URINE NEGATIVE (NEGATIVE); COLOR,URINE YELLOW; GLUCOSE, URINE NEGATIVE (NEGATIVE); KETONES,URINE 20 mg/dL (NEGATIVE); LEUKOCYTE ESTERASE,URINE LARGE (NEGATIVE); NITRITE,URINE NEGATIVE (NEGATIVE); PROTEIN,URINE 30 mg/dL (NEGATIVE); URINE SPECIFIC GRAVITY 1.042; UROBILINOGEN,URINE NEGATIVE mg/dL (<2.0)
[2020-01-05 03:49] LABS: URINE AMPHETAMINES SCREEN NEGATIVE; URINE BARBITURATES SCREEN NEGATIVE; URINE BENZODIAZEPINES SCREEN NEGATIVE; URINE MARIJUANA (THC) SCREEN NEGATIVE; URINE METHADONE SCREEN NEGATIVE; URINE PHENCYCLIDINE SCREEN NEGATIVE
[2020-01-05 03:52] LABS: URINE COCAINE SCREEN UNCONFIRMED POSITIVE
[2020-01-05] MEDS: HEPARIN SOD (PORCINE) 5,000 UNIT/ML 1 ML VIAL SUBCUT SCH ×3 (05:22→22:37)
[2020-01-05] MEDS: PANTOPRAZOLE SODIUM 40 MG TABLET.DR PO SCH ×2 (05:22→18:06)
[2020-01-05] MEDS: HYDRALAZINE HCL INJ/PF 20 MG/1 ML SDV IV PRN ×2 (05:22→18:50)
[2020-01-05] MEDS: ONDANSETRON HCL INJ/PF 4 MG/2 ML SDV IV PRN ×2 (06:52→14:27)
[2020-01-05 07:55] LABS: ABSOLUTE LYMPHOCYTES (AUTO) 1.3 10^3/uL (0.5-4.7); ABSOLUTE MONOCYTES (AUTO) 0.5 10^3/uL (0.1-1.4); ABSOLUTE NEUT (AUTO) 7.3 10^3/uL (1.7-8.2); BASOPHILS % (AUTO) 0.2 % (0-2); EOSINOPHILS % (AUTO) 0.4 % (0-6); HEMATOCRIT 37.2 % (36.0-47.0); HEMOGLOBIN 12.6 g/dL (12.0-15.5); LYMPHOCYTES % (AUTO) 14.5 % (13-45); MEAN CORPUSCULAR HEMOGLOBIN 30.2 pg (27.0-33.4); MEAN CORPUSCULAR VOLUME 89 fl (80-97); MONOCYTES % (AUTO) 5.2 % (3-13); PLATELET COUNT 250 10^3/uL (150-450); RED BLOOD COUNT 4.18 10^6/uL (3.72-5.28); RED CELL DISTRIBUTION WIDTH 13.7 % (11.5-14.0); SEGMENTED NEUTROPHILS % (AUTO) 79.7 % (42-78); TOTAL CELLS COUNTED % (AUTO) 100 %; WHITE BLOOD COUNT 9.1 10^3/uL (4.0-10.5)
[2020-01-05 08:20] LABS: ALBUMIN 4.3 g/dL (3.5-5.0); ALKALINE PHOSPHATASE 83 U/L (38-126); ANION GAP 8 (5-19); ASPARTATE AMINO TRANSFERASE 21 U/L (14-36); BILIRUBIN,TOTAL 0.6 mg/dL (0.2-1.3); BLOOD UREA NITROGEN 13 mg/dL (7-20); CALCIUM 9.5 mg/dL (8.4-10.2); CARBON DIOXIDE 25 mmol/L (22-30); CHLORIDE 103 mmol/L (98-107); CHOLESTEROL 188.22 mg/dL (0-200); GLUCOSE 134 mg/dL (75-110); PHOSPHORUS 3.5 mg/dL (2.5-4.5); POTASSIUM 3.4 mmol/L (3.6-5.0); TOTAL PROTEIN 6.8 g/dL (6.3-8.2); TRIGLYCERIDES 88 mg/dL (<150)
[2020-01-05 08:29] LABS: TROPONIN I 0.086 ng/mL
[2020-01-05 08:31] LABS: DIRECT LDL 101 mg/dL (<100)
[2020-01-05] MEDS: MULTIVITAMIN TABLET PO SCH (09:48)
[2020-01-05] MEDS: VITAMIN E (DL, ACETATE) 400 UNIT CAPSULE PO SCH (09:48)
--- NOTE | 2020-01-05 10:13 | PDOC PROGRESS REPORT ---
Subjective Progress Note for:: 01/05/20 Subjective:: 64 year old female With history of hypertension not taking medications for more than 6 months, COPD secondary to chronic smoking came to the emergency room with complaints of arm and leg weakness for 2 2 days. Complaining of occasional chest pressure-like symptoms. No other complaints. Extensive work-up was done in the ER positive for a blood pressure of systolic 220/diastolic of 110. Patient was given 10 IV hydralazine with no improvement. Medical consult was called for admission for hypertensive emergency. 01/05/[id number]-old female came in with hypertensive emergency noncompliant with her medications urine drug screen is positive for cocaine. Patient was started on nitro drip last night latest blood pressure is 162/80. Echocardiogram was requested which is pending. Patient is comfortably in the bed communicating well. Started on lisinopril 10 mg p.o. twice daily. Patient is also on IV hydralazine 10 mg every 3 hours as needed for a systolic blood pressure more than 170. Reason For Visit: HYPERTENSIVE EMERGENCY Physical Exam Vital Signs: Temp Pulse Resp BP Pulse Ox 98.0 F 81 18 162/86 H 98 01/05/20 08:13 01/05/20 08:13 01/05/20 03:10 01/05/20 08:30 01/05/20 08:13 Intake & Output 01/04/20 01/05/20 01/06/20 06:59 06:59 06:59 Intake Total 367 Balance 367 Weight 98.1 kg General appearance: PRESENT: no acute distress, well-developed Head exam: PRESENT: atraumatic Eye exam: PRESENT: PERRLA Mouth exam: PRESENT: moist, tongue midline Teeth exam: PRESENT: poor dentation Neck exam: ABSENT: carotid bruit, JVD, lymphadenopathy, thyromegaly Respiratory exam: PRESENT: decreased breath sounds Cardiovascular exam: PRESENT: RRR. ABSENT: diastolic murmur, rubs, systolic murmur GI/Abdominal exam: PRESENT: normal bowel sounds, soft. ABSENT: distended, guarding, mass, organolmegaly, rebound, tenderness Rectal exam: PRESENT: deferred Extremities exam: PRESENT: full ROM. ABSENT: calf tenderness, clubbing, pedal edema Neurological exam: PRESENT: alert, awake, oriented to person, oriented to place, oriented to time, oriented to situation, CN II-XII grossly intact. ABSENT: motor sensory deficit Psychiatric exam: PRESENT: appropriate affect, normal mood. ABSENT: homicidal ideation, suicidal ideation Results Laboratory Results: 01/05/20 07:00 01/05/20 07:00 01/04/20 01/04/20 01/05/20 15:40 15:40 03:10 WBC 4.8 RBC 4.44 Hgb 13.3 Hct 39.4 MCV 89 MCH 29.9 MCHC 33.6 RDW 13.7 Plt Count 239 Seg Neutrophils % 56.4 Sodium 135.3 L Potassium 3.9 Chloride 100 Carbon Dioxide 30 Anion Gap 5 BUN 10 Creatinine 0.82 Est GFR ( Amer) > 60 Glucose 81 Calcium 9.3 Phosphorus Total Bilirubin 0.4 AST 22 Alkaline Phosphatase 75 Total Protein 6.9 Albumin 4.3 Triglycerides Cholesterol LDL Cholesterol Direct VLDL Cholesterol HDL Cholesterol TSH Urine Color YELLOW Urine Appearance SLIGHTLY-CLOUDY Urine pH 6.0 Ur Specific [place] 1.042 Urine Protein 30 H Urine Glucose (UA) NEGATIVE Urine Ketones 20 H Urine Blood NEGATIVE Urine Nitrite NEGATIVE Ur Leukocyte Esterase LARGE H Urine WBC (Auto) 96 Urine RBC (Auto) 16 01/05/20 01/05/20 01/05/20 07:00 07:00 07:00 WBC 9.1 RBC 4.18 Hgb 12.6 Hct 37.2 MCV 89 MCH 30.2 MCHC 34.0 RDW 13.7 Plt Count 250 Seg Neutrophils % 79.7 H Sodium 135.5 L Potassium 3.4 L Chloride 103 Carbon Dioxide 25 Anion Gap 8 BUN 13 Creatinine 0.81 Est GFR ( Amer) > 60 Glucose 134 H Calcium 9.5 Phosphorus 3.5 Total Bilirubin 0.6 AST 21 Alkaline Phosphatase 83 Total Protein 6.8 Albumin 4.3 Triglycerides 88 Cholesterol 188.22 LDL Cholesterol Direct 101 H VLDL Cholesterol 18.0 HDL Cholesterol 69 TSH 6.70 H Urine Color Urine Appearance Urine pH Ur Specific [place] Urine Protein Urine Glucose (UA) Urine Ketones Urine Blood Urine Nitrite Ur Leukocyte Esterase Urine WBC (Auto) Urine RBC (Auto) 01/04/20 01/04/20 01/05/20 15:40 19:44 00:29 Troponin I 0.016 0.023 0.043 NT-Pro-B Natriuret Pep 1240 H 01/05/20 07:00 Troponin I 0.086 NT-Pro-B Natriuret Pep 1160 H Impressions: Head CTA 01/04/20 00:00 IMPRESSION: NORMAL CTA OF THE EXTRA-CRANIAL CAROTID AND VERTEBRAL ARTERIES. MULTIPLE CHRONIC APPEARING DEEP WHITE MATTER, BASAL GANGLIA, AND THALAMIC INFARCTS. NO CT EVIDENCE OF ACUTE LARGE TERRITORY ISCHEMIC CHANGE, ACUTE INTRACRANIAL HEMORRHAGE, MASS EFFECT, OR MIDLINE SHIFT. Chest X-Ray 01/04/20 14:58 IMPRESSION: NO ACUTE RADIOGRAPHIC FINDING IN THE CHEST. Head CT 01/04/20 14:59 IMPRESSION: NORMAL CTA OF THE EXTRA-CRANIAL CAROTID AND VERTEBRAL ARTERIES. MULTIPLE CHRONIC APPEARING DEEP WHITE MATTER, BASAL GANGLIA, AND THALAMIC INFARCTS. NO CT EVIDENCE OF ACUTE LARGE TERRITORY ISCHEMIC CHANGE, ACUTE INTRACRANIAL HEMORRHAGE, MASS EFFECT, OR MIDLINE SHIFT. Neck CTA 01/04/20 15:24 IMPRESSION: NORMAL CTA OF THE EXTRA-CRANIAL CAROTID AND VERTEBRAL ARTERIES. MULTIPLE CHRONIC APPEARING DEEP WHITE MATTER, BASAL GANGLIA, AND THALAMIC INFARCTS. NO CT EVIDENCE OF ACUTE LARGE TERRITORY ISCHEMIC CHANGE, ACUTE INTRACRANIAL HEMORRHAGE, MASS EFFECT, OR MIDLINE SHIFT. Assessment and Plan - Diagnosis (1) Hypertensive emergency Is this a current diagnosis for this admission?: Yes Plan: 01/04/2020-patient is going to be admitted to [facility] for hypertensive emergency as inpatient. Started on IV hydralazine 10 mg IV every 3-4 hours as needed for systolic blood pressure more than 170. GI prophylaxis DVT prophylaxis initiated. Echocardiogram will be requested. To give 1 dose of IV Lasix at this time. She was placed on a cardiac diet. 01/05/20-patient admitted with hypertensive emergency and patient was started on nitro drip last night. Latest blood pressure is 162 2/80 and patient is also on IV hydralazine 10 mg every 3 hours as needed for systolic blood pressure more than 170. To start her on lisinopril 10 mg p.o. twice daily today and to gradually taper off the nitro drip. Patient is positive for cocaine. (2) Tobacco abuse Is this a current diagnosis for this admission?: Yes Plan: 01/04/2020 patient is a daily day smoker, smoking counseling is provided for more than 20 minutes and a nicotine patch was placed. (3) Cocaine abuse Is this a current diagnosis for this admission?: Yes Plan: 01/05/20-urine drug screen is positive for cocaine. Counseling was provided about avoiding recreational drugs. - Time Anticipated Discharge Disposition: Home, Self Care Anticipated Discharge Timeframe: within 48 hours
[2020-01-05] MEDS ORDERED: POTASSIUM CHLORIDE 10 MEQ TABLET.ER PO ONE (11:00)
--- NOTE | 2020-01-05 14:53 | XCELERA REPORT ---
[address] [address] Transthoracic Echocardiogram Report Name: HERMINIA CINTRON Age: 64 yrs Gender: Female : 1955 Patient Status: Inpatient Patient Location: [address] [place] [address] Study Date: 01/05/2020 10:49 AM Height: 67 in Weight: 156 lb BSA: 1.8 m2 Procedure: A two-dimensional transthoracic echocardiogram with color flow and Doppler was performed. The study was technically difficult with many images being suboptimal in quality. Reason For Study: hypertensive emergency History: Hypertensive Emergency. Ordering Physician: LAMIN TO Performed By: Bob Wise Interpretation Summary There is moderate to severe concentric left ventricular hypertrophy. LV EF is 60% to 65% Left ventricular systolic function is normal. The left ventricular wall motion is normal. There is no thrombus. No ASD,VSD or PFO seen. The right ventricle is normal in size and function. The right atrium is normal. The left atrium is mildly dilated. There is no evidence of mitral valve prolapse. There is no vegetation seen on the mitral valve. There is no mitral valve stenosis. There is a trace amount of mitral regurgitation There is no aortic valvular vegetation. There is no aortic valve stenosis There is no LVOT obstruction. No aortic regurgitation is present. There is no tricuspid stenosis. There is a trace amount of tricuspid regurgitation There is mild pulmonary hypertension by echo RVSP is 35 to 40 mm of Hg , with RA mean of 5 to 10. There is no pulmonic valvular stenosis. There is no pulmonic valvular regurgitation. The aortic root is normal size. The inferior vena cava appeared normal and decreased > 50% with respiration (RAP 5-10 mmHg) Trace to mild posterior pericardial effusion. MMode/2D Measurements & Calculations RVDd: 3.0 cm LVIDd: 5.2 cm FS: 33.3 % Ao root diam: 2.8 cm IVSd: 1.6 cm LVIDs: 3.5 cm EDV(Teich): 128.7 ml Ao root area: 6.2 cm2 LVPWd: 1.6 cm ESV(Teich): 49.5 ml LA dimension: 4.1 cm EF(Teich): 61.5 % Doppler Measurements & Calculations MV E max leanne: MV P1/2t max leanne: Ao V2 max: LV V1 max P.5 cm/sec 68.0 cm/sec 161.3 cm/sec 6.4 mmHg MV A max leanne: MV P1/2t: 79.4 msec Ao max PG: LV V1 max: 122.8 cm/sec MVA(P1/2t): 2.8 cm2 10.4 mmHg 126.4 cm/sec MV E/A: 0.51 MV dec slope: 251.0 cm/sec2 MV dec time: 0.30 sec PA V2 max: TR max leanne: MV P1/2t-pr_phl: 155.1 cm/sec 275.5 cm/sec 79.4 msec PA max P.6 mmHgTR max P.4 mmHg Left Ventricle The left ventricle is normal in size. There is moderate to severe concentric left ventricular hypertrophy. LV EF is 60% to 65%. Left ventricular systolic function is normal. Doppler measurements suggest pseudonormalized left ventricular relaxation, which is associated with grade II/IV or mild to moderate diastolic dysfunction. The left ventricular wall motion is normal. There is no thrombus. No ASD,VSD or PFO seen. Right Ventricle The right ventricle is normal in size and function. Atria The right atrium is normal. The left atrium is mildly dilated. Mitral Valve There is no evidence of mitral valve prolapse. There is no vegetation seen on the mitral valve. There is no mitral valve stenosis. There is a trace amount of mitral regurgitation. Aortic Valve There is no aortic valvular vegetation. There is no aortic valve stenosis. There is no LVOT obstruction. No aortic regurgitation is present. Tricuspid Valve There is no tricuspid stenosis. There is a trace amount of tricuspid regurgitation. There is mild pulmonary hypertension by echo. RVSP is 35 to 40 mm of Hg , with RA mean of 5 to 10. Pulmonic Valve There is no pulmonic valvular stenosis. There is no pulmonic valvular regurgitation. Great Vessels The aortic root is normal size. The inferior vena cava appeared normal and decreased > 50% with respiration (RAP 5-10 mmHg). Effusions Trace to mild posterior pericardial effusion. There are no echocardiographic or Doppler indications for cardiac tamponade. : LAMIN TO Lakshmi
[2020-01-05] MEDS: NITROGLYCERIN/D5W 50 MG/250 ML RTUINJ IV PRN (18:05)
[2020-01-05] MEDS ORDERED: LISINOPRIL 10 MG TABLET PO SCH (22:00)
[2020-01-06] MEDS: HYDRALAZINE HCL INJ/PF 20 MG/1 ML SDV IV PRN ×3 (00:11→19:49)
[2020-01-06] MEDS: PANTOPRAZOLE SODIUM 40 MG TABLET.DR PO SCH ×2 (06:21→16:42)
[2020-01-06] MEDS: HEPARIN SOD (PORCINE) 5,000 UNIT/ML 1 ML VIAL SUBCUT SCH ×3 (06:21→22:32)
[2020-01-06 06:54] LABS: ABSOLUTE LYMPHOCYTES (AUTO) 1.3 10^3/uL (0.5-4.7); ABSOLUTE MONOCYTES (AUTO) 0.8 10^3/uL (0.1-1.4); ABSOLUTE NEUT (AUTO) 7.8 10^3/uL (1.7-8.2); BASOPHILS % (AUTO) 0.2 % (0-2); HEMOGLOBIN 11.5 g/dL (12.0-15.5); LYMPHOCYTES % (AUTO) 12.7 % (13-45); MEAN CORPUSCULAR HEMOGLOBIN 30.6 pg (27.0-33.4); MEAN CORPUSCULAR HGB CONC 34.9 g/dL (32.0-36.0); MEAN CORPUSCULAR VOLUME 88 fl (80-97); MONOCYTES % (AUTO) 7.7 % (3-13); PLATELET COUNT 210 10^3/uL (150-450); RED BLOOD COUNT 3.76 10^6/uL (3.72-5.28); RED CELL DISTRIBUTION WIDTH 13.7 % (11.5-14.0); SEGMENTED NEUTROPHILS % (AUTO) 79.4 % (42-78); TOTAL CELLS COUNTED % (AUTO) 100 %; WHITE BLOOD COUNT 9.8 10^3/uL (4.0-10.5)
[2020-01-06 07:31] LABS: ALBUMIN 3.8 g/dL (3.5-5.0); ALKALINE PHOSPHATASE 73 U/L (38-126); ANION GAP 10 (5-19); ASPARTATE AMINO TRANSFERASE 20 U/L (14-36); BILIRUBIN,TOTAL 0.8 mg/dL (0.2-1.3); BLOOD UREA NITROGEN 17 mg/dL (7-20); CALCIUM 9.2 mg/dL (8.4-10.2); CARBON DIOXIDE 26 mmol/L (22-30); CHLORIDE 100 mmol/L (98-107); GLUCOSE 123 mg/dL (75-110); POTASSIUM 3.7 mmol/L (3.6-5.0); TOTAL PROTEIN 6.3 g/dL (6.3-8.2)
[2020-01-06] MEDS ORDERED: NITROGLYCERIN/D5W 50 MG/250 ML RTUINJ IV ONE (07:54)
[2020-01-06] MEDS: MULTIVITAMIN TABLET PO SCH (09:20)
[2020-01-06] MEDS: LISINOPRIL 10 MG TABLET PO SCH ×2 (09:20→22:32)
[2020-01-06] MEDS: AMLODIPINE BESYLATE 10 MG TABLET PO SCH (09:20)
[2020-01-06] MEDS: VITAMIN E (DL, ACETATE) 400 UNIT CAPSULE PO SCH (09:21)
--- NOTE | 2020-01-06 10:31 | PDOC PROGRESS REPORT ---
Subjective Progress Note for:: 01/06/20 Subjective:: 64 year old female With history of hypertension not taking medications for more than 6 months, COPD secondary to chronic smoking came to the emergency room with complaints of arm and leg weakness for 2 2 days. Complaining of occasional chest pressure-like symptoms. No other complaints. Extensive work-up was done in the ER positive for a blood pressure of systolic 220/diastolic of 110. Patient was given 10 IV hydralazine with no improvement. Medical consult was called for admission for hypertensive emergency. 01/05/[id number]-icuy-old female came in with hypertensive emergency noncompliant with her medications urine drug screen is positive for cocaine. Patient was started on nitro drip last night latest blood pressure is 162/80. Echocardiogram was requested which is pending. Patient is comfortably in the bed communicating well. Started on lisinopril 10 mg p.o. twice daily. Patient is also on IV hydralazine 10 mg every 3 hours as needed for a systolic blood pressure more than 170. 01/06/[id number]-nzzw-old female noncompliant with her medications, cocaine user admitted for hypertensive emergency. Patient is presently on lisinopril 10 mg p.o. daily, amlodipine 10 mg added. Plan is to increase the lisinopril to 20 mg p.o. twice a day and to continue IV hydralazine 10 mg every 3 hours as needed for systolic blood pressure more than 170. Plan is to gradually taper off nitro drip at this time. Reason For Visit: HYPERTENSIVE EMERGENCY Physical Exam Vital Signs: Temp Pulse Resp BP Pulse Ox 98.6 F 82 16 171/86 H 95 01/06/20 07:50 01/06/20 07:50 01/06/20 07:50 01/06/20 10:00 01/06/20 07:50 Intake & Output 01/05/20 01/06/20 01/07/20 06:59 06:59 06:59 Intake Total 367 283 Output Total 250 Balance 367 33 Weight 98.1 kg 65.5 kg General appearance: PRESENT: no acute distress, well-developed Head exam: PRESENT: atraumatic Eye exam: PRESENT: PERRLA Ear exam: PRESENT: normal external ear exam Mouth exam: PRESENT: moist, tongue midline Neck exam: ABSENT: carotid bruit, JVD, lymphadenopathy, thyromegaly Respiratory exam: PRESENT: decreased breath sounds Cardiovascular exam: PRESENT: RRR. ABSENT: diastolic murmur, rubs, systolic murmur GI/Abdominal exam: PRESENT: normal bowel sounds, soft. ABSENT: distended, guarding, mass, organolmegaly, rebound, tenderness Rectal exam: PRESENT: deferred Extremities exam: PRESENT: full ROM. ABSENT: calf tenderness, clubbing, pedal edema Neurological exam: PRESENT: alert, awake, oriented to person, oriented to place, oriented to time, oriented to situation, CN II-XII grossly intact. ABSENT: motor sensory deficit Psychiatric exam: PRESENT: appropriate affect, normal mood. ABSENT: homicidal ideation, suicidal ideation Results Laboratory Results: 01/06/20 06:27 01/06/20 06:27 01/06/20 01/06/20 06:27 06:27 WBC 9.8 RBC 3.76 Hgb 11.5 L Hct 33.0 L MCV 88 MCH 30.6 MCHC 34.9 RDW 13.7 Plt Count 210 Seg Neutrophils % 79.4 H Sodium 135.7 L Potassium 3.7 Chloride 100 Carbon Dioxide 26 Anion Gap 10 BUN 17 Creatinine 0.85 Est GFR ( Amer) > 60 Glucose 123 H Calcium 9.2 Magnesium 2.0 Total Bilirubin 0.8 AST 20 Alkaline Phosphatase 73 Total Protein 6.3 Albumin 3.8 01/04/20 01/04/20 01/05/20 15:40 19:44 00:29 Troponin I 0.016 0.023 0.043 NT-Pro-B Natriuret Pep 1240 H 01/05/20 07:00 Troponin I 0.086 NT-Pro-B Natriuret Pep 1160 H Impressions: Head CTA 01/04/20 00:00 IMPRESSION: NORMAL CTA OF THE EXTRA-CRANIAL CAROTID AND VERTEBRAL ARTERIES. MULTIPLE CHRONIC APPEARING DEEP WHITE MATTER, BASAL GANGLIA, AND THALAMIC INFARCTS. NO CT EVIDENCE OF ACUTE LARGE TERRITORY ISCHEMIC CHANGE, ACUTE INTRACRANIAL HEMORRHAGE, MASS EFFECT, OR MIDLINE SHIFT. Chest X-Ray 01/04/20 14:58 IMPRESSION: NO ACUTE RADIOGRAPHIC FINDING IN THE CHEST. Head CT 01/04/20 14:59 IMPRESSION: NORMAL CTA OF THE EXTRA-CRANIAL CAROTID AND VERTEBRAL ARTERIES. MULTIPLE CHRONIC APPEARING DEEP WHITE MATTER, BASAL GANGLIA, AND THALAMIC INFARCTS. NO CT EVIDENCE OF ACUTE LARGE TERRITORY ISCHEMIC CHANGE, ACUTE INTRACRANIAL HEMORRHAGE, MASS EFFECT, OR MIDLINE SHIFT. Neck CTA 01/04/20 15:24 IMPRESSION: NORMAL CTA OF THE EXTRA-CRANIAL CAROTID AND VERTEBRAL ARTERIES. MULTIPLE CHRONIC APPEARING DEEP WHITE MATTER, BASAL GANGLIA, AND THALAMIC INFARCTS. NO CT EVIDENCE OF ACUTE LARGE TERRITORY ISCHEMIC CHANGE, ACUTE INTRACRANIAL HEMORRHAGE, MASS EFFECT, OR MIDLINE SHIFT. Assessment and Plan - Diagnosis (1) Hypertensive emergency Is this a current diagnosis for this admission?: Yes Plan: 01/04/2020-patient is going to be admitted to [facility] for hypertensive emergency as inpatient. Started on IV hydralazine 10 mg IV every 3-4 hours as needed for systolic blood pressure more than 170. GI prophylaxis DVT prophylaxis ini tiated. Echocardiogram will be requested. To give 1 dose of IV Lasix at this time. She was placed on a cardiac diet. 01/05/20-patient admitted with hypertensive emergency and patient was started on nitro drip last night. Latest blood pressure is 162 2/80 and patient is also on IV hydralazine 10 mg every 3 hours as needed for systolic blood pressure more than 170. To start her on lisinopril 10 mg p.o. twice daily today and to gradually taper off the nitro drip. Patient is positive for cocaine. 01/06/2020-latest blood pressure is 153/82. Plan is to gradually taper off the nitro drip, to increase the lisinopril to 20 mg p.o. daily, to continue amlodipine and to continue IV hydralazine 10 mg every 3 hours as needed for systolic blood pressure more than 170. (2) Tobacco abuse Is this a current diagnosis for this admission?: Yes Plan: 01/04/2020 patient is a daily day smoker, smoking counseling is provided for more than 20 minutes and a nicotine patch was placed. (3) Cocaine abuse Is this a current diagnosis for this admission?: Yes Plan: 01/05/20-urine drug screen is positive for cocaine. Counseling was provided about avoiding recreational drugs. - Time Anticipated Discharge Disposition: Home, Self Care Anticipated Discharge Timeframe: within 72 hours
[2020-01-06] MEDS: ACETAMINOPHEN 325 MG TABLET PO PRN ×2 (12:08→19:49)
[2020-01-07] MEDS: PANTOPRAZOLE SODIUM 40 MG TABLET.DR PO SCH ×2 (06:48→17:49)
[2020-01-07] MEDS: HEPARIN SOD (PORCINE) 5,000 UNIT/ML 1 ML VIAL SUBCUT SCH ×3 (06:48→21:05)
[2020-01-07] MEDS ORDERED: LORAZEPAM 1 MG TABLET PO PRN (08:53)
--- NOTE | 2020-01-07 08:55 | PDOC PROGRESS REPORT ---
Subjective Progress Note for:: 01/07/20 Subjective:: 64 year old female With history of hypertension not taking medications for more than 6 months, COPD secondary to chronic smoking came to the emergency room with complaints of arm and leg weakness for 2 2 days. Complaining of occasional chest pressure-like symptoms. No other complaints. Extensive work-up was done in the ER positive for a blood pressure of systolic 220/diastolic of 110. Patient was given 10 IV hydralazine with no improvement. Medical consult was called for admission for hypertensive emergency. 01/05/[id number]-gxvp-old female came in with hypertensive emergency noncompliant with her medications urine drug screen is positive for cocaine. Patient was started on nitro drip last night latest blood pressure is 162/80. Echocardiogram was requested which is pending. Patient is comfortably in the bed communicating well. Started on lisinopril 10 mg p.o. twice daily. Patient is also on IV hydralazine 10 mg every 3 hours as needed for a systolic blood pressure more than 170. 01/06/[id number]-dcyc-old female noncompliant with her medications, cocaine user admitted for hypertensive emergency. Patient is presently on lisinopril 10 mg p.o. daily, amlodipine 10 mg added. Plan is to increase the lisinopril to 20 mg p.o. twice a day and to continue IV hydralazine 10 mg every 3 hours as needed for systolic blood pressure more than 170. Plan is to gradually taper off nitro drip at this time. 01/07/[id number]-wmwl-old female cocaine user admitted with hypertensive emergency. Blood pressure this morning is 170/111 presently on lisinopril 20 mg p.o. twice daily, amlodipine 10 mg p.o. daily, IV hydralazine 10 mg every 3 hours as needed. Systolic blood pressure more than 170. Started on hydrochlorothiazide 12.5 mg p.o. twice daily. Patient says she cannot afford her medications pt wants to stay until tomorrow and to make arrangements for her to go to a community care care clinic tomorrow. Reason For Visit: HYPERTENSIVE EMERGENCY Physical Exam Vital Signs: Temp Pulse Resp BP Pulse Ox 99.4 F 83 16 168/88 H 93 01/07/20 03:06 01/07/20 03:06 01/07/20 03:06 01/07/20 03:06 01/07/20 03:06 Intake & Output 01/06/20 01/07/20 01/08/20 06:59 06:59 06:59 Intake Total 283 1250 Output Total 250 900 Balance 33 350 Weight 65.5 kg 67.2 kg General appearance: PRESENT: no acute distress, cooperative, well-developed Head exam: PRESENT: atraumatic Eye exam: PRESENT: PERRLA Ear exam: PRESENT: normal external ear exam Mouth exam: PRESENT: neck supple Neck exam: ABSENT: carotid bruit, JVD, lymphadenopathy, thyromegaly Respiratory exam: PRESENT: clear to auscultation gonzalez. ABSENT: rales, rhonchi, wheezes Cardiovascular exam: PRESENT: RRR. ABSENT: diastolic murmur, rubs, systolic murmur GI/Abdominal exam: PRESENT: normal bowel sounds, soft. ABSENT: distended, guarding, mass, organolmegaly, rebound, tenderness Rectal exam: PRESENT: deferred Extremities exam: PRESENT: full ROM. ABSENT: calf tenderness, clubbing, pedal edema Neurological exam: PRESENT: alert, awake, oriented to person, oriented to place, oriented to time, oriented to situation, CN II-XII grossly intact. ABSENT: motor sensory deficit Psychiatric exam: PRESENT: appropriate affect, normal mood. ABSENT: homicidal ideation, suicidal ideation Results Laboratory Results: 01/06/20 06:27 01/06/20 06:27 01/04/20 01/04/20 01/05/20 15:40 19:44 00:29 Troponin I 0.016 0.023 0.043 NT-Pro-B Natriuret Pep 1240 H 01/05/20 07:00 Troponin I 0.086 NT-Pro-B Natriuret Pep 1160 H Impressions: Head CTA 01/04/20 00:00 IMPRESSION: NORMAL CTA OF THE EXTRA-CRANIAL CAROTID AND VERTEBRAL ARTERIES. MULTIPLE CHRONIC APPEARING DEEP WHITE MATTER, BASAL GANGLIA, AND THALAMIC INFARCTS. NO CT EVIDENCE OF ACUTE LARGE TERRITORY ISCHEMIC CHANGE, ACUTE INTRACRANIAL HEMORRHAGE, MASS EFFECT, OR MIDLINE SHIFT. Chest X-Ray 01/04/20 14:58 IMPRESSION: NO ACUTE RADIOGRAPHIC FINDING IN THE CHEST. Head CT 01/04/20 14:59 IMPRESSION: NORMAL CTA OF THE EXTRA-CRANIAL CAROTID AND VERTEBRAL ARTERIES. MULTIPLE CHRONIC APPEARING DEEP WHITE MATTER, BASAL GANGLIA, AND THALAMIC INFARCTS. NO CT EVIDENCE OF ACUTE LARGE TERRITORY ISCHEMIC CHANGE, ACUTE INTRACRANIAL HEMORRHAGE, MASS EFFECT, OR MIDLINE SHIFT. Neck CTA 01/04/20 15:24 IMPRESSION: NORMAL CTA OF THE EXTRA-CRANIAL CAROTID AND VERTEBRAL ARTERIES. MULTIPLE CHRONIC APPEARING DEEP WHITE MATTER, BASAL GANGLIA, AND THALAMIC INFARCTS. NO CT EVIDENCE OF ACUTE LARGE TERRITORY ISCHEMIC CHANGE, ACUTE INTRACRANIAL HEMORRHAGE, MASS EFFECT, OR MIDLINE SHIFT. Assessment and Plan - Diagnosis (1) Hypertensive emergency Is this a current diagnosis for this admission?: Yes Plan: 01/04/2020-patient is going to be admitted to [facility] for hypertensive emergency as inpatient. Started on IV hydralazine 10 mg IV every 3-4 hours as needed for systolic blood pressure more than 170. GI prophylaxis DVT prophylaxis initiated. Echocardiogram will be requested. To give 1 dose of IV Lasix at this time. She was placed on a cardiac diet. 01/05/20-patient admitted with hypertensive emergency and patient was started on nitro drip last night. Latest blood pressure is 162 2/80 and patient is also on IV hydralazine 10 mg every 3 hours as needed for systolic blood pressure more than 170. To start her on lisinopril 10 mg p.o. twice daily today and to gradually taper off the nitro drip. Patient is positive for cocaine. 01/06/2020-latest blood pressure is 153/82. Plan is to gradually taper off the nitro drip, to increase the lisinopril to 20 mg p.o. daily, to continue amlodipine and to continue IV hydralazine 10 mg every 3 hours as needed for systolic blood pressure more than 170. 01/07/2020-blood pressure today's 170/111. Plan is to add hydrochlorothiazide 12.5 mg p.o. twice daily and to continue lisinopril 20 mg twice a day, amlodipine 10 mg daily, hydralazine 10 mg IV every 3 hours as needed for systolic blood pressure more than 170. (2) Tobacco abuse Is this a current diagnosis for this admission?: Yes Plan: 01/04/2020 patient is a daily day smoker, smoking counseling is provided for more than 20 minutes and a nicotine patch was placed. (3) Cocaine abuse Is this a current diagnosis for this admission?: Yes Plan: 01/05/20-urine drug screen is positive for cocaine. Counseling was provided about avoiding recreational drugs. - Time Anticipated Discharge Disposition: Home, Self Care Anticipated Discharge Timeframe: within 24 hours
[2020-01-07] MEDS: VITAMIN E (DL, ACETATE) 400 UNIT CAPSULE PO SCH (09:04)
[2020-01-07] MEDS: ACETAMINOPHEN 325 MG TABLET PO PRN (09:04)
[2020-01-07] MEDS: AMLODIPINE BESYLATE 10 MG TABLET PO SCH (09:04)
[2020-01-07] MEDS: HYDROCHLOROTHIAZIDE 12.5 MG TABLET PO SCH ×2 (09:05→21:05)
[2020-01-07] MEDS: MULTIVITAMIN TABLET PO SCH (09:05)
[2020-01-07] MEDS: LISINOPRIL 10 MG TABLET PO SCH ×2 (09:05→21:05)
[2020-01-07] MEDS: HYDRALAZINE HCL INJ/PF 20 MG/1 ML SDV IV PRN (23:47)
[2020-01-08] MEDS: HYDRALAZINE HCL INJ/PF 20 MG/1 ML SDV IV PRN (03:20)
[2020-01-08] MEDS: HEPARIN SOD (PORCINE) 5,000 UNIT/ML 1 ML VIAL SUBCUT SCH ×3 (05:08→21:29)
[2020-01-08] MEDS: PANTOPRAZOLE SODIUM 40 MG TABLET.DR PO SCH ×2 (05:08→17:41)
[2020-01-08] MEDS ORDERED: HYDRALAZINE HCL 50 MG TABLET PO ONE (07:00)
--- NOTE | 2020-01-08 09:38 | PDOC PROGRESS REPORT ---
Subjective Progress Note for:: 01/08/20 Subjective:: 64 year old female With history of hypertension not taking medications for more than 6 months, COPD secondary to chronic smoking came to the emergency room with complaints of arm and leg weakness for 2 2 days. Complaining of occasional chest pressure-like symptoms. No other complaints. Extensive work-up was done in the ER positive for a blood pressure of systolic 220/diastolic of 110. Patient was given 10 IV hydralazine with no improvement. Medical consult was called for admission for hypertensive emergency. 01/05/[id number]-sijs-old female came in with hypertensive emergency noncompliant with her medications urine drug screen is positive for cocaine. Patient was started on nitro drip last night latest blood pressure is 162/80. Echocardiogram was requested which is pending. Patient is comfortably in the bed communicating well. Started on lisinopril 10 mg p.o. twice daily. Patient is also on IV hydralazine 10 mg every 3 hours as needed for a systolic blood pressure more than 170. 01/06/[id number]-worl-old female noncompliant with her medications, cocaine user admitted for hypertensive emergency. Patient is presently on lisinopril 10 mg p.o. daily, amlodipine 10 mg added. Plan is to increase the lisinopril to 20 mg p.o. twice a day and to continue IV hydralazine 10 mg every 3 hours as needed for systolic blood pressure more than 170. Plan is to gradually taper off nitro drip at this time. 01/07/[id number]-omvs-old female cocaine user admitted with hypertensive emergency. Blood pressure this morning is 170/111 presently on lisinopril 20 mg p.o. twice daily, amlodipine 10 mg p.o. daily, IV hydralazine 10 mg every 3 hours as needed. Systolic blood pressure more than 170. Started on hydrochlorothiazide 12.5 mg p.o. twice daily. Patient says she cannot afford her medications pt wants to stay until tomorrow and to make arrangements for her to go to a community care care clinic tomorrow. 01/08/20-blood pressure today is 197/115. Patient is on lisinopril 20 mg p.o. twice daily, hydrochlorothiazide 12.5 mg p.o. twice daily, amlodipine 10 mg p.o. daily. She is also on IV hydralazine 10 mg every 3 hours as needed for systolic blood pressure more than 170. Plan is to arrange for CT abdominal pelvis with IV contrast to rule out renal artery stenosis. Reason For Visit: HYPERTENSIVE EMERGENCY Physical Exam Vital Signs: Temp Pulse Resp BP Pulse Ox 99.2 F 85 16 137/78 H 97 01/08/20 08:06 01/08/20 08:06 01/08/20 08:06 01/08/20 08:06 01/08/20 08:06 Intake & Output 01/07/20 01/08/20 01/09/20 06:59 06:59 06:59 Intake Total 1250 1370 Output Total 900 1200 Balance 350 170 Weight 67.2 kg 66.3 kg General appearance: PRESENT: no acute distress, cooperative Head exam: PRESENT: atraumatic Eye exam: PRESENT: PERRLA Mouth exam: PRESENT: moist, tongue midline Teeth exam: PRESENT: poor dentation Neck exam: ABSENT: carotid bruit, JVD, lymphadenopathy, thyromegaly Respiratory exam: PRESENT: decreased breath sounds Cardiovascular exam: PRESENT: RRR. ABSENT: diastolic murmur, rubs, systolic murmur GI/Abdominal exam: PRESENT: normal bowel sounds, soft. ABSENT: distended, guarding, mass, organolmegaly, rebound, tenderness Rectal exam: PRESENT: deferred Extremities exam: PRESENT: full ROM. ABSENT: calf tenderness, clubbing, pedal edema Neurological exam: PRESENT: alert, awake, oriented to person, oriented to place, oriented to time, oriented to situation, CN II-XII grossly intact. ABSENT: motor sensory deficit Psychiatric exam: PRESENT: appropriate affect, normal mood. ABSENT: homicidal ideation, suicidal ideation Results Laboratory Results: 01/06/20 06:27 01/06/20 06:27 01/04/20 01/04/20 01/05/20 15:40 19:44 00:29 Troponin I 0.016 0.023 0.043 NT-Pro-B Natriuret Pep 1240 H 01/05/20 07:00 Troponin I 0.086 NT-Pro-B Natriuret Pep 1160 H Impressions: Head CTA 01/04/20 00:00 IMPRESSION: NORMAL CTA OF THE EXTRA-CRANIAL CAROTID AND VERTEBRAL ARTERIES. MULTIPLE CHRONIC APPEARING DEEP WHITE MATTER, BASAL GANGLIA, AND THALAMIC INFARCTS. NO CT EVIDENCE OF ACUTE LARGE TERRITORY ISCHEMIC CHANGE, ACUTE INTRACRANIAL HEMORRHAGE, MASS EFFECT, OR MIDLINE SHIFT. Chest X-Ray 01/04/20 14:58 IMPRESSION: NO ACUTE RADIOGRAPHIC FINDING IN THE CHEST. Head CT 01/04/20 14:59 IMPRESSION: NORMAL CTA OF THE EXTRA-CRANIAL CAROTID AND VERTEBRAL ARTERIES. MULTIPLE CHRONIC APPEARING DEEP WHITE MATTER, BASAL GANGLIA, AND THALAMIC INFARCTS. NO CT EVIDENCE OF ACUTE LARGE TERRITORY ISCHEMIC CHANGE, ACUTE INTRACRANIAL H EMORRHAGE, MASS EFFECT, OR MIDLINE SHIFT. Neck CTA 01/04/20 15:24 IMPRESSION: NORMAL CTA OF THE EXTRA-CRANIAL CAROTID AND VERTEBRAL ARTERIES. MULTIPLE CHRONIC APPEARING DEEP WHITE MATTER, BASAL GANGLIA, AND THALAMIC INFARCTS. NO CT EVIDENCE OF ACUTE LARGE TERRITORY ISCHEMIC CHANGE, ACUTE INTRACRANIAL HEMORRHAGE, MASS EFFECT, OR MIDLINE SHIFT. Assessment and Plan - Diagnosis (1) Hypertensive emergency Is this a current diagnosis for this admission?: Yes Plan: 01/04/2020-patient is going to be admitted to [facility] for hypertensive emergency as inpatient. Started on IV hydralazine 10 mg IV every 3-4 hours as needed for systolic blood pressure more than 170. GI prophylaxis DVT prophylaxis initiated. Echocardiogram will be requested. To give 1 dose of IV Lasix at this time. She was placed on a cardiac diet. 01/05/20-patient admitted with hypertensive emergency and patient was started on nitro drip last night. Latest blood pressure is 162 2/80 and patient is also on IV hydralazine 10 mg every 3 hours as needed for systolic blood pressure more th an 170. To start her on lisinopril 10 mg p.o. twice daily today and to gradually taper off the nitro drip. Patient is positive for cocaine. 01/06/2020-latest blood pressure is 153/82. Plan is to gradually taper off the nitro drip, to increase the lisinopril to 20 mg p.o. daily, to continue amlodi [place] and to continue IV hydralazine 10 mg every 3 hours as needed for systolic blood pressure more than 170. 01/07/2020-blood pressure today's 170/111. Plan is to add hydrochlorothiazide 12.5 mg p.o. twice daily and to continue lisinopril 20 mg twice a day, amlodipine 10 mg daily, hydralazine 10 mg IV every 3 hours as needed for systolic blood pressure more than 170. 01/08/2020-blood pressure today is 197/115. On lisinopril 20 mg p.o. every 12 hours, amlodipine 10 mg p.o. daily, hydrochlorothiazide 12.5 mg p.o. twice daily without any improvement. She is also receiving IV hydralazine 10 mg every 3 hours as needed. Plan is to do the work-up to rule out renal artery stenosis. (2) Tobacco abuse Is this a current diagnosis for this admission?: Yes Plan: 01/04/2020 patient is a daily day smoker, smoking counseling is provided for more than 20 minutes and a nicotine patch was placed. (3) Cocaine abuse Is this a current diagnosis for this admission?: Yes Plan: 01/05/20-urine drug screen is positive for cocaine. Counseling was provided about avoiding recreational drugs. - Time Anticipated Discharge Disposition: Home with Home Health Anticipated Discharge Timeframe: within 48 hours
[2020-01-08] MEDS: LISINOPRIL 10 MG TABLET PO SCH ×2 (10:46→21:29)
[2020-01-08] MEDS: VITAMIN E (DL, ACETATE) 400 UNIT CAPSULE PO SCH (10:46)
[2020-01-08] MEDS: MULTIVITAMIN TABLET PO SCH (10:46)
[2020-01-08] MEDS: AMLODIPINE BESYLATE 10 MG TABLET PO SCH (10:47)
[2020-01-08] MEDS: HYDROCHLOROTHIAZIDE 12.5 MG TABLET PO SCH ×2 (10:47→21:29)
--- NOTE | 2020-01-08 12:32 | RADIOLOGY REPORT (SQ) ---
EXAM DESCRIPTION: CTA ABDOMEN/PELVIS W WO IMAGES COMPLETED DATE/TIME: 01/08/2020 9:09 am REASON FOR STUDY: renal artery stenosis COMPARISON: 11/13/2010 TECHNIQUE: CT scan of the abdominal aorta extending to the iliac bifurcation performed with and with out intravenous contrast using helical scanning technique with dynamic intravenous contrast injection . Images reviewed with lung, soft tissue, and bone windows. Reconstructed coronal and sagittal MPR im ages reviewed. All images stored on PACS. Advanced 3D imaging as volume rendering, MIPS, SSD performed? yes All CT scanners at this facility use dose modulation, iterative reconstruction, and/or weight based d osing when appropriate to reduce radiation dose to as low as reasonably achievable (ALARA). [facility]: Dose Right [facility]: CareDose [facility]: Dose Right [facility]: Teradose 4D [facility]: [employer] CONTRAST TYPE AND DOSE: contrast/concentration: Isovue 350.00 mmol/ml; Total Contrast Delivered: 100 .0 ml; Total Saline Delivered: 90.0 ml RENAL FUNCTION: BUN 17, creatinine 0.85 LIMITATIONS: None. FINDINGS: NON-CONTRASTED IMAGING: Post contrast images only. POST-CONTRAST IMAGING: AORTA AND VESSELS: No aneurysm or dissection. Celiac axis, SMA and renal arteries are patent. Mild scattered atherosclerotic plaque. LUNG BASES: No significant findings. No nodules or infiltrates. There is a small pericardial effusio n. Largest diameter is 1.2 cm. LIVER: Normal size. No masses or dilated ducts. SPLEEN: Normal size. No focal lesions. PANCREAS: No masses. No significant calcifications. No adjacent inflammation or peripancreatic fluid collections. Pancreatic duct not dilated. GALLBLADDER: Surgically absent. ADRENAL GLANDS: Stable in appearance. Probable small left adrenal adenoma which is unchanged from pr ior study. RIGHT KIDNEY AND URETER: No mass, calculi or urinary tract obstruction. LEFT KIDNEY AND URETER: No mass, calculi or urinary tract obstruction. RETROPERITONEUM: No retroperitoneal adenopathy, hemorrhage or masses. BOWEL AND PERITONEAL CAVITY: No masses or inflammatory changes. No free fluid or peritoneal masses. APPENDIX: Not visualized. ABDOMINAL WALL: No masses. No hernias. BONY STRUCTURES: No significant or acute findings. 3-D IMAGING: Confirms the above findings. OTHER: No other significant finding. IMPRESSION: No evidence of renal artery stenosis. Scattered calcified plaque throughout the abdomin al aorta. No other significant findings in the abdomen or pelvis. TECHNICAL DOCUMENTATION: JOB ID: [id number] Quality ID # [id number]: Final reports with documentation of one or more dose reduction techniques (e.g., Au tomated exposure control, adjustment of the mA and/or kV according to patient size, use of iterative reconstruction technique) 2010 [employer]- All Rights Reserved Reading location - IP/workstation name: [email or web address]-
[2020-01-08] MEDS: HYDRALAZINE HCL 50 MG TABLET PO SCH ×2 (15:29→21:28)
[2020-01-08] MEDS ORDERED: HYDRALAZINE HCL INJ/PF 20 MG/1 ML SDV IV PRN (15:30)
[2020-01-09] MEDS: HEPARIN SOD (PORCINE) 5,000 UNIT/ML 1 ML VIAL SUBCUT SCH ×3 (05:31→22:43)
[2020-01-09] MEDS: PANTOPRAZOLE SODIUM 40 MG TABLET.DR PO SCH ×2 (05:31→17:21)
[2020-01-09] MEDS: HYDRALAZINE HCL 50 MG TABLET PO SCH ×3 (05:31→22:43)
[2020-01-09] MEDS: HYDROCHLOROTHIAZIDE 12.5 MG TABLET PO SCH ×2 (09:11→22:43)
[2020-01-09] MEDS: MULTIVITAMIN TABLET PO SCH (09:11)
[2020-01-09] MEDS: AMLODIPINE BESYLATE 10 MG TABLET PO SCH (09:12)
[2020-01-09] MEDS: VITAMIN E (DL, ACETATE) 400 UNIT CAPSULE PO SCH (09:12)
[2020-01-09] MEDS: LISINOPRIL 10 MG TABLET PO SCH ×2 (09:12→22:43)
--- NOTE | 2020-01-09 12:58 | PDOC PROGRESS REPORT ---
Subjective Progress Note for:: 01/09/20 Subjective:: Patient complains of generalized weakness and shortness of breath Reason For Visit: HYPERTENSIVE EMERGENCY Physical Exam Vital Signs: Temp Pulse Resp BP Pulse Ox 98.1 F 83 18 145/65 H 98 01/09/20 11:25 01/09/20 11:25 01/09/20 11:25 01/09/20 11:25 01/09/20 11:25 Intake & Output 01/08/20 01/09/20 01/10/20 06:59 06:59 06:59 Intake Total 1370 558 Output Total 1200 950 Balance 170 -392 Weight 66.3 kg 69 kg General appearance: PRESENT: no acute distress, well-developed, well-nourished Head exam: PRESENT: atraumatic, normocephalic Eye exam: PRESENT: conjunctiva pink Mouth exam: PRESENT: moist, tongue midline Neck exam: ABSENT: JVD Respiratory exam: PRESENT: clear to auscultation gonzalez, decreased breath sounds - Air entry diminished at bases bilaterally, symmetrical, unlabored. ABSENT: accessory muscle use Cardiovascular exam: PRESENT: RRR, +S1, +S2 Pulses: PRESENT: normal radial pulses Vascular exam: PRESENT: normal capillary refill GI/Abdominal exam: PRESENT: normal bowel sounds, soft. ABSENT: distended, tenderness Rectal exam: PRESENT: deferred Extremities exam: ABSENT: calf tenderness, pedal edema Neurological exam: PRESENT: alert, awake, oriented to person, oriented to place, oriented to time, oriented to situation, CN II-XII grossly intact Psychiatric exam: PRESENT: appropriate affect, normal mood. ABSENT: agitated, anxious Skin exam: PRESENT: dry, normal color, warm Results Laboratory Results: 01/06/20 06:27 01/06/20 06:27 01/04/20 01/04/20 01/05/20 15:40 19:44 00:29 Troponin I 0.016 0.023 0.043 NT-Pro-B Natriuret Pep 1240 H 01/05/20 07:00 Troponin I 0.086 NT-Pro-B Natriuret Pep 1160 H Impressions: Head CTA 01/04/20 00:00 IMPRESSION: NORMAL CTA OF THE EXTRA-CRANIAL CAROTID AND VERTEBRAL ARTERIES. MULTIPLE CHRONIC APPEARING DEEP WHITE MATTER, BASAL GANGLIA, AND THALAMIC INFARCTS. NO CT EVIDENCE OF ACUTE LARGE TERRITORY ISCHEMIC CHANGE, ACUTE INTRACRANIAL HEMORRHAGE, MASS EFFECT, OR MIDLINE SHIFT. Chest X-Ray 01/04/20 14:58 IMPRESSION: NO ACUTE RADIOGRAPHIC FINDING IN THE CHEST. Head CT 01/04/20 14:59 IMPRESSION: NORMAL CTA OF THE EXTRA-CRANIAL CAROTID AND VERTEBRAL ARTERIES. MULTIPLE CHRONIC APPEARING DEEP WHITE MATTER, BASAL GANGLIA, AND THALAMIC INFARC TS. NO CT EVIDENCE OF ACUTE LARGE TERRITORY ISCHEMIC CHANGE, ACUTE INTRACRANIAL HEMORRHAGE, MASS EFFECT, OR MIDLINE SHIFT. Neck CTA 01/04/20 15:24 IMPRESSION: NORMAL CTA OF THE EXTRA-CRANIAL CAROTID AND VERTEBRAL ARTERIES. MULTIPLE CHRONIC APPEARING DEEP WHITE MATTER, BASAL GANGLIA, AND THALAMIC INFARCTS. NO CT EVIDENCE OF ACUTE LARGE TERRITORY ISCHEMIC CHANGE, ACUTE INTRACRANIAL HEMORRHAGE, MASS EFFECT, OR MIDLINE SHIFT. Abdomen/Pelvis CTA 01/08/20 00:00 IMPRESSION: No evidence of renal artery stenosis. Scattered calcified plaque throughout the abdominal aorta. No other significant findings in the abdomen or pelvis. Assessment and Plan - Diagnosis (1) Hypertensive emergency Is this a current diagnosis for this admission?: Yes Plan: BP improved today CT of abdomen/pelvis on 01/08/2020 revealed no evidence of renal artery stenosis Continue amlodipine 10 mg p.o. daily Continue hydralazine 100 mg p.o. every 8 hours Continue lisinopril 20 mg p.o. every 12 hours Continue HCTZ 12.5 mg p.o. every 12 hours Continue additional hydralazine IV as needed (2) Tobacco abuse Is this a current diagnosis for this admission?: Yes Plan: Cessation reinforced Continue nicotine patch topically daily (3) Cocaine abuse Is this a current diagnosis for this admission?: Yes Plan: Reinforced importance of abstaining from illicit drug use (4) Elevated brain natriuretic peptide (BNP) level Is this a current diagnosis for this admission?: Yes Plan: Patient does not seem significantly volume overloaded Continue HCTZ as noted above (5) Anemia Is this a current diagnosis for this admission?: Yes Plan: Anemia is mild and patient is asymptomatic Guaiac stool Monitor (6) Hyperglycemia Is this a current diagnosis for this admission?: Yes Plan: No treatment indicated Monitor with a.m. labs - Time Time Spent with patient: 25-34 minutes Medications reviewed and adjusted accordingly: Yes Anticipated Discharge Disposition: Home, Self Care Anticipated Discharge Timeframe: within 36 hours
[2020-01-10] MEDS: HEPARIN SOD (PORCINE) 5,000 UNIT/ML 1 ML VIAL SUBCUT SCH ×3 (05:29→21:49)
[2020-01-10] MEDS: PANTOPRAZOLE SODIUM 40 MG TABLET.DR PO SCH ×2 (05:29→17:20)
[2020-01-10] MEDS: HYDRALAZINE HCL 50 MG TABLET PO SCH ×3 (05:29→21:49)
[2020-01-10 07:46] LABS: ABSOLUTE EOSINOPHILS # (AUTO) 0.2 10^3/uL (0.0-0.6); ABSOLUTE LYMPHOCYTES (AUTO) 1.2 10^3/uL (0.5-4.7); ABSOLUTE MONOCYTES (AUTO) 0.7 10^3/uL (0.1-1.4); BASOPHILS % (AUTO) 0.5 % (0-2); EOSINOPHILS % (AUTO) 3.9 % (0-6); HEMATOCRIT 35.5 % (36.0-47.0); HEMOGLOBIN 12.2 g/dL (12.0-15.5); LYMPHOCYTES % (AUTO) 23.3 % (13-45); MEAN CORPUSCULAR HEMOGLOBIN 30.2 pg (27.0-33.4); MEAN CORPUSCULAR HGB CONC 34.3 g/dL (32.0-36.0); MEAN CORPUSCULAR VOLUME 88 fl (80-97); PLATELET COUNT 281 10^3/uL (150-450); RED BLOOD COUNT 4.04 10^6/uL (3.72-5.28); RED CELL DISTRIBUTION WIDTH 13.7 % (11.5-14.0); SEGMENTED NEUTROPHILS % (AUTO) 58.3 % (42-78); TOTAL CELLS COUNTED % (AUTO) 100 %; WHITE BLOOD COUNT 5.2 10^3/uL (4.0-10.5)
[2020-01-10 08:02] LABS: ANION GAP 12 (5-19); BLOOD UREA NITROGEN 18 mg/dL (7-20); CALCIUM 9.3 mg/dL (8.4-10.2); CARBON DIOXIDE 28 mmol/L (22-30); CHLORIDE 91 mmol/L (98-107); GLUCOSE 100 mg/dL (75-110)
[2020-01-10 08:08] LABS: POTASSIUM 2.9 mmol/L (3.6-5.0)
[2020-01-10] MEDS: HYDROCHLOROTHIAZIDE 12.5 MG TABLET PO SCH (09:32)
[2020-01-10] MEDS: MULTIVITAMIN TABLET PO SCH (09:32)
[2020-01-10] MEDS: LISINOPRIL 10 MG TABLET PO SCH ×2 (09:32→21:49)
[2020-01-10] MEDS: VITAMIN E (DL, ACETATE) 400 UNIT CAPSULE PO SCH (09:32)
[2020-01-10] MEDS: AMLODIPINE BESYLATE 10 MG TABLET PO SCH (09:32)
[2020-01-10] MEDS ORDERED: POTASSIUM CHLORIDE 10 MEQ TABLET.ER PO ONE ×2 (10:00→18:00)
--- NOTE | 2020-01-10 16:42 | PDOC PROGRESS REPORT ---
Subjective Progress Note for:: 01/10/20 Subjective:: Patient continues to complain of generalized weakness. Denies shortness of breath or chest discomfort Reason For Visit: HYPERTENSIVE EMERGENCY Physical Exam Vital Signs: Temp Pulse Resp BP Pulse Ox 98.4 F 75 19 126/61 H 97 01/10/20 11:54 01/10/20 14:00 01/10/20 11:54 01/10/20 11:54 01/10/20 11:54 Intake & Output 01/09/20 01/10/20 01/11/20 06:59 06:59 06:59 Intake Total 558 1260 Output Total 950 1050 Balance -392 210 Weight 69 kg 67.4 kg General appearance: PRESENT: no acute distress, well-developed, well-nourished Head exam: PRESENT: atraumatic, normocephalic Eye exam: PRESENT: conjunctiva pink. ABSENT: scleral icterus Mouth exam: PRESENT: moist, tongue midline Neck exam: ABSENT: JVD Respiratory exam: PRESENT: clear to auscultation gonzalez, decreased breath sounds - Air entry diminished at bases bilaterally, symmetrical, unlabored. ABSENT: accessory muscle use Cardiovascular exam: PRESENT: RRR, +S1, +S2 Pulses: PRESENT: normal radial pulses, +1 pedal pulses bilateral GI/Abdominal exam: PRESENT: normal bowel sounds, soft. ABSENT: distended, tenderness Rectal exam: PRESENT: deferred Extremities exam: ABSENT: calf tenderness, pedal edema Neurological exam: PRESENT: alert, awake, oriented to person, oriented to place, oriented to time, oriented to situation, CN II-XII grossly intact Psychiatric exam: PRESENT: unusual affect. ABSENT: agitated, anxious Skin exam: PRESENT: dry, normal color, warm Results Laboratory Results: 01/10/20 06:40 01/10/20 06:40 01/10/20 01/10/20 06:40 06:40 WBC 5.2 RBC 4.04 Hgb 12.2 Hct 35.5 L MCV 88 MCH 30.2 MCHC 34.3 RDW 13.7 Plt Count 281 Seg Neutrophils % 58.3 Sodium 131.1 L Potassium 2.9 L* Chloride 91 L Carbon Dioxide 28 Anion Gap 12 BUN 18 Creatinine 0.91 Est GFR ( Amer) > 60 Glucose 100 Calcium 9.3 01/04/20 01/04/20 01/05/20 15:40 19:44 00:29 Troponin I 0.016 0.023 0.043 NT-Pro-B Natriuret Pep 1240 H 01/05/20 07:00 Troponin I 0.086 NT-Pro-B Natriuret Pep 1160 H Impressions: Head CTA 01/04/20 00:00 IMPRESSION: NORMAL CTA OF THE EXTRA-CRANIAL CAROTID AND VERTEBRAL ARTERIES. MULTIPLE CHRONIC APPEARING DEEP WHITE MATTER, BASAL GANGLIA, AND THALAMIC INFARCTS. NO CT EVIDENCE OF ACUTE LARGE TERRITORY ISCHEMIC CHANGE, ACUTE INTRACRANIAL HEMORRHAGE, MASS EFFECT, OR MIDLINE SHIFT. Chest X-Ray 01/04/20 14:58 IMPRESSION: NO ACUTE RADIOGRAPHIC FINDING IN THE CHEST. Head CT 01/04/20 14:59 IMPRESSION: NORMAL CTA OF THE EXTRA-CRANIAL CAROTID AND VERTEBRAL ARTERIES. MULTIPLE CHRONIC APPEARING DEEP WHITE MATTER, BASAL GANGLIA, AND THALAMIC INFARCTS. NO CT EVIDENCE OF ACUTE LARGE TERRITORY ISCHEMIC CHANGE, ACUTE INTRACRANIAL HEMORRHAGE, MASS EFFECT, OR MIDLINE SHIFT. Neck CTA 01/04/20 15:24 IMPRESSION: NORMAL CTA OF THE EXTRA-CRANIAL CAROTID AND VERTEBRAL ARTERIES. MULTIPLE CHRONIC APPEARING DEEP WHITE MATTER, BASAL GANGLIA, AND THALAMIC INFARCTS. NO CT EVIDENCE OF ACUTE LARGE TERRITORY ISCHEMIC CHANGE, ACUTE INTRACRANIAL HEMORRHAGE, MASS EFFECT, OR MIDLINE SHIFT. Abdomen/Pelvis CTA 01/08/20 00:00 IMPRESSION: No evidence of renal artery stenosis. Scattered calcified plaque throughout the abdominal aorta. No other significant findings in the abdomen or pelvis. Assessment and Plan - Diagnosis (1) Hypertensive emergency Is this a current diagnosis for this admission?: Yes Plan: Adequate BP control CT of abdomen/pelvis on 01/08/2020 revealed no evidence of renal artery stenosis Continue amlodipine 10 mg p.o. daily Continue hydralazine 100 mg p.o. every 8 hours Continue lisinopril 20 mg p.o. every 12 hours Hold HCTZ 12.5 mg p.o. every 12 hours Continue additional hydralazine IV as needed (2) Hypokalemia Is this a current diagnosis for this admission?: Yes Plan: Until this a.m. patient has not had labs in 4 days Hypokalemia may be related to HCTZ, will hold for now Replete Repeat BMP with magnesium in a.m. (3) Tobacco abuse Is this a current diagnosis for this admission?: Yes Plan: Cessation reinforced Continue nicotine patch topically daily (4) Cocaine abuse Is this a current diagnosis for this admission?: Yes Plan: Reinforced importance of abstaining from illicit drug use (5) Elevated brain natriuretic peptide (BNP) level Is this a current diagnosis for this admission?: Yes Plan: Patient does not seem significantly volume overloaded Continue HCTZ as noted above Recheck in a.m. (6) Anemia Is this a current diagnosis for this admission?: Yes Plan: Anemia is mild and patient is asymptomatic Guaiac stool, none recorded since ordered Monitor periodically (7) Hyperglycemia Is this a current diagnosis for this admission?: Yes Plan: No treatment indicated Monitor with a.m. labs - Time Time Spent with patient: 15-24 minutes Medications reviewed and adjusted accordingly: Yes Anticipated Discharge Disposition: Home, Self Care Anticipated Discharge Timeframe: within 36 hours
[2020-01-11] MEDS: HEPARIN SOD (PORCINE) 5,000 UNIT/ML 1 ML VIAL SUBCUT SCH (05:23)
[2020-01-11] MEDS: HYDRALAZINE HCL 50 MG TABLET PO SCH (05:24)
[2020-01-11] MEDS: PANTOPRAZOLE SODIUM 40 MG TABLET.DR PO SCH (05:24)
[2020-01-11 07:54] LABS: ANION GAP 9 (5-19); BLOOD UREA NITROGEN 18 mg/dL (7-20); CALCIUM 9.2 mg/dL (8.4-10.2); CARBON DIOXIDE 27 mmol/L (22-30); CHLORIDE 96 mmol/L (98-107); GLUCOSE 98 mg/dL (75-110); POTASSIUM 3.6 mmol/L (3.6-5.0)
[2020-01-11] MEDS ORDERED: POTASSIUM CHLORIDE 10 MEQ TABLET.ER PO ONE (09:40)
[2020-01-11] MEDS ORDERED: ASPIRIN 81 MG TABLET, ENT COATED PO SCH (10:00)
[2020-01-11] MEDS: LISINOPRIL 10 MG TABLET PO SCH (10:41)
[2020-01-11] MEDS: VITAMIN E (DL, ACETATE) 400 UNIT CAPSULE PO SCH (10:41)
[2020-01-11] MEDS: MULTIVITAMIN TABLET PO SCH (10:41)
[2020-01-11] MEDS: AMLODIPINE BESYLATE 10 MG TABLET PO SCH (10:41)
[2020-01-11 11:53] LABS: TROPONIN I 0.081 ng/mL
--- NOTE | 2020-01-11 12:51 | PDOC DISCHARGE SUMMARY ---
Impression - Admit/DC Date/PCP Admission Date/Primary Care Provider: 01/04/20 18:12 Discharge Date: 01/11/20 - Discharge Diagnosis (1) Hypertensive emergency Is this a current diagnosis for this admission?: Yes (2) Hypokalemia Is this a current diagnosis for this admission?: Yes (3) Tobacco abuse Is this a current diagnosis for this admission?: Yes (4) Cocaine abuse Is this a current diagnosis for this admission?: Yes (5) Elevated brain natriuretic peptide (BNP) level Is this a current diagnosis for this admission?: Yes (6) Anemia Is this a current diagnosis for this admission?: Yes (7) Hyperglycemia Is this a current diagnosis for this admission?: Yes - Additional Information Resuscitation Status: Do Not Resuscitate Discharge Diet: Cardiac Discharge Activity: Activity As Tolerated Referrals: INES VILLEDA DPM [ACTIVE STAFF] - Follow up as needed CEE VITALE MD [COMMUNITY BASED STAFF] - Prescriptions: Hydralazine HCl [Apresoline 50 mg Tablet] 100 mg PO Q8 #90 tablet Aspirin [Ecotrin 81 mg EC Tablet] 81 mg PO DAILY #30 tabec Nicotine [Nicoderm 14 mg/24 Hr Transdermal Patch] 1 each TD DAILYP PRN #30 patch.td24 PRN Reason: Amlodipine Besylate [Norvasc 10 mg Tablet] 10 mg PO DAILY #30 tablet Lisinopril [Prinivil 10 mg Tablet] 20 mg PO Q12 #120 tablet Home Medications: Multivitamin [Tab-A-Ilana (Multiple Vitamin) Tablet] 1 tab PO DAILY 01/04/20 Vitamin E (Dl, Acetate) [Vitamin E 400 Unit Capsule] 400 unit PO DAILY 01/04/20 Amlodipine Besylate [Norvasc 10 mg Tablet] 10 mg PO DAILY #30 tablet 01/11/20 Aspirin [Ecotrin 81 mg EC Tablet] 81 mg PO DAILY #30 tabec 01/11/20 Hydralazine HCl [Apresoline 50 mg Tablet] 100 mg PO Q8 #90 tablet 01/11/20 Lisinopril [Prinivil 10 mg Tablet] 20 mg PO Q12 #120 tablet 01/11/20 Nicotine [Nicoderm 14 mg/24 Hr Transdermal Patch] 1 each TD DAILYP PRN #30 patch.td24 01/11/20 History of Present Illiness History of Present Illness: HERMINIA CINTRON is a 64 year old female with PMH significant for COPD, HTN, dyslipidemia, CHF, thyroid disease, GERD, depression, and cocaine use who presented to the ED with complaints of arm and leg weakness for approximately 2 days. In the ED she had an extensive work-up which included the finding of this significantly elevated blood pressure (220s/110's). A CT/CTA of the head/neck was completed which revealed normal CTA of the extra-carinal carotid and vertebral arteries. Additionally, she was found to have multiple chronic appearing deep white matter, basal ganglia, and thalamic infarcts. There was no CT evidence of acute large territory ischemic change, acute intracranial hemorrhage, mass-effect, or midline shift. Serum troponin was elevated. Hospitalist team was consulted to admit the patient for further evaluation and treatment. Hospital Course Hospital Course: Over subsequent days the patient's serial troponins trended up and an echocardiogram was completed. this revealed moderate to severe concentric LVH with normal LV function and an LVEF of 60 to 65%. Additional findings included normal RV function, trace MR, and mild pulmonary hypertension. Of note, the patient never complained of chest pain or chest pressure. She also did not have any signs of shortness of breath. Additionally a TSH was drawn which was 6.7. The patient was not started on thyroid replacement therapy and will need follow- up as an outpatient for this. In review of her historical TSH levels they have been both high and low. The patient was started on a baby aspirin daily given the CT findings. A lipid panel was completed which was grossly WNL with the exception of slightly elevated LDL cholesterol. Given the patient's financial situation and inability to pay for her medications she was not started on a lipid-lowering agent and this will need to be evaluated as an outpatient her PCP. Additional findings during her hospitalization included elevated BNP. She was started on hydrochlorothiazide however over subsequent days the developed significant hypokalemia and this was stopped. Antihypertensive therapy was titrated and at the time of discharge her blood pressure was adequately contr olled, but she will need close further follow-up with her PCP potentially titrate her medication doses or add additional agents. The patient was counseled on tobacco cessation as well as importance of abstinence from illicit drug use, specifically cocaine. Physical Exam Vital Signs: Temp Pulse Resp BP Pulse Ox 98.4 F 70 20 152/77 H 96 01/11/20 11:47 01/11/20 11:47 01/11/20 11:47 01/11/20 11:47 01/11/20 11:47 Intake & Output 01/10/20 01/11/20 01/12/20 06:59 06:59 06:59 Intake Total 1260 1030 Output Total 1050 1275 Balance 210 -245 Weight 67.4 kg 68.4 kg General appearance: PRESENT: no acute distress, cooperative Head exam: PRESENT: atraumatic, normocephalic Eye exam: PRESENT: conjunctiva pink. ABSENT: scleral icterus Mouth exam: PRESENT: moist, tongue midline Neck exam: ABSENT: JVD Respiratory exam: PRESENT: clear to auscultation gonzalez, decreased breath sounds - Air entry diminished at the bases bilaterally, prolonged expiratory phas, symmetrical, unlabored. ABSENT: accessory muscle use, crackles, rales, retraction, rhonchi, tachypnea, wheezes Cardiovascular exam: PRESENT: RRR, +S1, +S2 Pulses: PRESENT: normal radial pulses Vascular exam: PRESENT: normal capillary refill GI/Abdominal exam: PRESENT: normal bowel sounds, soft. ABSENT: distended, tenderness Rectal exam: PRESENT: deferred Extremities exam: ABSENT: calf tenderness, clubbing, pedal edema Neurological exam: PRESENT: alert, awake, oriented to person, oriented to place, oriented to time, oriented to situation, CN II-XII grossly intact Psychiatric exam: PRESENT: normal mood, unusual affect. ABSENT: agitated, anxious Skin exam: PRESENT: dry, normal color, warm Results Laboratory Results: WBC 5.2 10^3/uL (4.0-10.5) 01/10/20 06:40 RBC 4.04 10^6/uL (3.72-5.28) 01/10/20 06:40 Hgb 12.2 g/dL (12.0-15.5) 01/10/20 06:40 Hct 35.5 % (36.0-47.0) L 01/10/20 06:40 MCV 88 fl (80-97) 01/10/20 06:40 MCH 30.2 pg (27.0-33.4) 01/10/20 06:40 MCHC 34.3 g/dL (32.0-36.0) 01/10/20 06:40 RDW 13.7 % (11.5-14.0) 01/10/20 06:40 Plt Count 281 10^3/uL (150-450) 01/10/20 06:40 Lymph % (Auto) 23.3 % (13-45) 01/10/20 06:40 [place] % (Auto) 14.0 % (3-13) H 01/10/20 06:40 Eos % (Auto) 3.9 % (0-6) 01/10/20 06:40 Baso % (Auto) 0.5 % (0-2) 01/10/20 06:40 Absolute Neuts (auto) 3.0 10^3/uL (1.7-8.2) 01/10/20 06:40 Absolute Lymphs (auto) 1.2 10^3/uL (0.5-4.7) 01/10/20 06:40 Absolute Monos (auto) 0.7 10^3/uL (0.1-1.4) 01/10/20 06:40 Absolute Eos (auto) 0.2 10^3/uL (0.0-0.6) 01/10/20 06:40 Absolute Basos (auto) 0.0 10^3/uL (0.0-0.2) 01/10/20 06:40 Seg Neutrophils % 58.3 % (42-78) 01/10/20 06:40 Sodium 131.7 mmol/L (137-145) L 01/11/20 07:22 Potassium 3.6 mmol/L (3.6-5.0) 01/11/20 07:22 Chloride 96 mmol/L (98-107) L 01/11/20 07:22 Carbon Dioxide 27 mmol/L (22-30) 01/11/20 07:22 Anion Gap 9 (5-19) 01/11/20 07:22 BUN 18 mg/dL (7-20) 01/11/20 07:22 Creatinine 0.91 mg/dL (0.52-1.25) 01/11/20 07:22 Est GFR ( Amer) > 60 (>60) 01/11/20 07:22 Est GFR (MDRD) Non-Af > 60 (>60) 01/11/20 07:22 Glucose 98 mg/dL (75-110) 01/11/20 07:22 Hemoglobin A1c % 4.9 % (4.7-6.0) 01/05/20 07:00 Calcium 9.2 mg/dL (8.4-10.2) 01/11/20 07:22 Phosphorus 3.5 mg/dL (2.5-4.5) 01/05/20 07:00 Magnesium 1.7 mg/dL (1.6-2.3) 01/11/20 07:22 Total Bilirubin 0.8 mg/dL (0.2-1.3) 01/06/20 06:27 Direct Bilirubin 0.0 mg/dL (0.0-0.4) 01/06/20 06:27 Neonat Total Bilirubin Not Reportable 01/06/20 06:27 Neonat Direct Bilirubin Not Reportable 01/06/20 06:27 Neonat Indirect Bili Not Reportable 01/06/20 06:27 AST 20 U/L (14-36) 01/06/20 06:27 ALT 8 U/L (<35) 01/06/20 06:27 Alkaline Phosphatase 73 U/L (38-126) 01/06/20 06:27 Troponin I 0.081 ng/mL 01/11/20 10:20 NT-Pro-B Natriuret Pep 124 pg/mL (<125) 01/11/20 10:20 Total Protein 6.3 g/dL (6.3-8.2) 01/06/20 06:27 Albumin 3.8 g/dL (3.5-5.0) 01/06/20 06:27 Triglycerides 88 mg/dL (<150) 01/05/20 07:00 Cholesterol 188.22 mg/dL (0-200) 01/05/20 07:00 LDL Cholesterol Direct 101 mg/dL (<100) H 01/05/20 07:00 VLDL Cholesterol 18.0 mg/dL (10-31) 01/05/20 07:00 HDL Cholesterol 69 mg/dL (>40) 01/05/20 07:00 TSH 6.70 uIU/mL (0.47-4.68) H 01/05/20 07:00 Urine Color YELLOW 01/05/20 03:10 Urine Appearance SLIGHTLY-CLOUDY 01/05/20 03:10 Urine pH 6.0 (5.0-9.0) 01/05/20 03:10 Ur Specific [place] 1.042 01/05/20 03:10 Urine Protein 30 mg/dL (NEGATIVE) H 01/05/20 03:10 Urine Glucose (UA) NEGATIVE mg/dL (NEGATIVE) 01/05/20 03:10 Urine Ketones 20 mg/dL (NEGATIVE) H 01/05/20 03:10 Urine Blood NEGATIVE (NEGATIVE) 01/05/20 03:10 Urine Nitrite NEGATIVE (NEGATIVE) 01/05/20 03:10 Urine Bilirubin NEGATIVE (NEGATIVE) 01/05/20 03:10 Urine Urobilinogen NEGATIVE mg/dL (<2.0) 01/05/20 03:10 Ur Leukocyte Esterase LARGE (NEGATIVE) H 01/05/20 03:10 Urine WBC (Auto) 96 /HPF 01/05/20 03:10 Urine RBC (Auto) 16 /HPF 01/05/20 03:10 Squamous Epi Cells Auto 3 /HPF 01/05/20 03:10 Urine Ascorbic Acid NEGATIVE (NEGATIVE) 01/05/20 03:10 Urine Opiates Screen NEGATIVE 01/05/20 03:10 Urine Methadone Screen NEGATIVE 01/05/20 03:10 Ur Barbiturates Screen NEGATIVE 01/05/20 03:10 Ur Phencyclidine Scrn NEGATIVE 01/05/20 03:10 Ur Amphetamines Screen NEGATIVE 01/05/20 03:10 U Benzodiazepines Scrn NEGATIVE 01/05/20 03:10 Urine Cocaine Screen UNCONFIRMED POSITIVE 01/05/20 03:10 U Marijuana (THC) Screen NEGATIVE 01/05/20 03:10 01/04/20 01/04/20 01/05/20 15:40 19:44 00:29 Troponin I 0.016 0.023 0.043 NT-Pro-B Natriuret Pep 1240 H 01/05/20 01/11/20 01/11/20 07:00 07:22 10:20 Troponin I 0.086 0.081 NT-Pro-B Natriuret Pep 1160 H 140 H 124 Impressions: Head CTA 01/04/20 00:00 IMPRESSION: NORMAL CTA OF THE EXTRA-CRANIAL CAROTID AND VERTEBRAL ARTERIES. MULTIPLE CHRONIC APPEARING DEEP WHITE MATTER, BASAL GANGLIA, AND THALAMIC INFARCTS. NO CT EVIDENCE OF ACUTE LARGE TERRITORY ISCHEMIC CHANGE, ACUTE INTRACRANIAL HEMORRHAGE, MASS EFFECT, OR MIDLINE SHIFT. Chest X-Ray 08/13/20 14:58 IMPRESSION: NO ACUTE RADIOGRAPHIC FINDING IN THE CHEST. Head CT 01/04/20 14:59 IMPRESSION: NORMAL CTA OF THE EXTRA-CRANIAL CAROTID AND VERTEBRAL ARTERIES. MULTIPLE CHRONIC APPEARING DEEP WHITE MATTER, BASAL GANGLIA, AND THALAMIC INFARCTS. NO CT EVIDENCE OF ACUTE LARGE TERRITORY ISCHEMIC CHANGE, ACUTE INTRACRANIAL HEMORRHAGE, MASS EFFECT, OR MIDLINE SHIFT. Neck CTA 01/04/20 15:24 IMPRESSION: NORMAL CTA OF THE EXTRA-CRANIAL CAROTID AND VERTEBRAL ARTERIES. MULTIPLE CHRONIC APPEARING DEEP WHITE MATTER, BASAL GANGLIA, AND THALAMIC INFARCTS. NO CT EVIDENCE OF ACUTE LARGE TERRITORY ISCHEMIC CHANGE, ACUTE INTRACRANIAL HEMORRHAGE, MASS EFFECT, OR MIDLINE SHIFT. Abdomen/Pelvis CTA 01/08/20 00:00 IMPRESSION: No evidence of renal artery stenosis. Scattered calcified plaque throughout the abdominal aorta. No other significant findings in the abdomen or pelvis. Plan Plan of Treatment: Patient will need to follow-up with PCP within 1 week of discharge with follow- up labs to include BMP and TSH Patient was counseled on tobacco cessation and discharged with a prescription for nicotine patches Patient was also on the importance of abstinence from illicit drug use, specifically cocaine Patient was provided information on [facility] to assist in making her discharge prescriptions affordable Patient was counseled on the importance of using her medications as prescribed and following up with her PCP Stroke Is this a Stroke Patient?: No Acute Heart Failure - Is this a Heart Failure Patient?: No
[2020-01-11 13:18] VITALS: BP 210/120
== END 2020-01-11 13:37 | disposition home or self-care (01) | DRG 305 ==
LOC: ER 13:59 → EH 18:12 → 3S 20:58
PROVIDERS: ADMIT Internal Medicine; ATTEND Nurse Practitioner
PROC: B24BZZZ Ultrasonography of Heart with Aorta (ICD-10-PCS; principal; 2020-01-05)
DX: I16.1 Hypertensive emergency (principal); T46.4X6A Underdosing of angiotensin-converting-enzyme inhibitors, initial encounter; F17.200 Nicotine dependence, unspecified, uncomplicated; Z91.120 Patient's intentional underdosing of medication regimen due to financial hardship; F14.10 Cocaine abuse, uncomplicated; I11.0 Hypertensive heart disease with heart failure; I50.9 Heart failure, unspecified; K21.9 Gastro-esophageal reflux disease without esophagitis; Z90.49 Acquired absence of other specified parts of digestive tract; F32.9 Major depressive disorder, single episode, unspecified; R79.89 Other specified abnormal findings of blood chemistry; E87.6 Hypokalemia; E78.5 Hyperlipidemia, unspecified; J44.9 Chronic obstructive pulmonary disease, unspecified; E05.90 Thyrotoxicosis, unspecified without thyrotoxic crisis or storm; M19.90 Unspecified osteoarthritis, unspecified site; Z66 Do not resuscitate; Z82.49 Family history of ischemic heart disease and other diseases of the circulatory system; Z71.6 Tobacco abuse counseling; D64.9 Anemia, unspecified; R19.5 Other fecal abnormalities; R73.9 Hyperglycemia, unspecified
CPT/HCPCS: 36415; 70450; 70496; 70498; 71045; 74174; 80048; 80053; 80061; 80307; 81001; 83036; 83735; 83880; 84100; 84443; 84484; 85025; 93005; 93010; 93306; 96374; 96376; 99285; J0360; J1644; J2060; J2405; J3490